=== PATIENT | male | born 1960 | race African-American/Black ===

== ENCOUNTER 2018-02-13 06:59 | Day surgery (SDC) | payer OTHER, MEDICAID ==
[2018-02-11 10:37] LABS: Urine Bacteria NONE SEEN /hpf (None Seen); Urine Blood Negative /uL (Negative); Urine Specific Gravity 1.014 (1.001-1.035); Urine WBC <1 /hpf (0 - 3)
[2018-02-11 11:04] LABS: Hematocrit 47.2 % (41.0-53.0); Hemoglobin 15.6 g/dL (13.5-17.5); Mean Corpuscular Hemoglobin 32.7 pg (28.0-32.0); Mean Corpuscular Hgb Conc. 33.1 g/dL (32.0-36.0); Mean Corpuscular Volume 98.8 fL (80.0-100.0); Platelet Count (auto) 216 10^3/uL (140-450); Red Blood Cells 4.78 10^6/uL (4.5-5.90); White Blood Cell 15.3 10^3/uL (4.4-10.8)
[2018-02-11 11:49] LABS: Calcium 9.1 mg/dL (8.5-10.1); Potassium 4.6 mmol/L (3.5-5.1)
[2018-02-11 11:55] LABS: Albumin 3.9 g/dL (3.4-5.0); BUN/Creatinine Ratio 20.2; Bilirubin, Total 0.7 mg/dL (0.2-1.0); Total Protein 6.9 g/dL (6.4-8.2)
[2018-02-11 12:19] LABS: Band Neutrophils % (manual) 0; Basophils % (manual) 0 (0.0-2.0); Blast Cells 0; Eosinophils % (manual) 0 (0-7); Metamyelocytes % 0; Myelocytes % 0; Promyelocytes % 0; Reactive Lymphocytes 0
[2018-02-11 12:35] LABS: INR 0.88 (0.9-1.15); Partial Thromboplastin Time 27.3 sec (23.78-33.04); Prothrombin Time 9.5 sec (9.27-12.13)
[2018-02-11 15:43] LABS: Lymphocytes % (manual) 78 (10.0-50.0); Monocytes % (manual) 2 (0-12)
[~2018-02-13] VITALS: Ht 170.2 cm; Wt 61.2 kg
[~2018-02-13 06:59] MED LIST: HYDR-4683 PO; METF-370 PO; ZOLP10TA PO
[2018-02-13] MEDS ORDERED: ceFAZolin 1GM/50ML 50 ML IV ONE (07:57)
[2018-02-13] MEDS ORDERED: BUPIVACAINE 0.75% INJ 10ML MPV SDV IJ ONE (08:24)
[2018-02-13] MEDS ORDERED: MIDAZOLAM HCL 1MG/1ML-2 ML VIAL ONE (08:33)
[2018-02-13] MEDS ORDERED: fentaNYL CITRATE 100 MCG/2 ML VL ONE (08:33)
[2018-02-13] MEDS ORDERED: PROPOFOL 10 MG/ML 20 ML IV ONE (08:34)
[2018-02-13] MEDS ORDERED: ePHEDrine SULFATE 50 MG/ML AMP IV PRN (09:00)
[2018-02-13] MEDS ORDERED: fentaNYL CITRATE 100 MCG/2 ML VL IV ONE (09:00)
[2018-02-13] MEDS ORDERED: ONDANSETRON HCL 4 MG/2 ML VIAL IV ONE (09:00)
[2018-02-13] MEDS ORDERED: hydrALAZINE HCL 20 MG/ML VL IV PRN (09:00)
[2018-02-20 07:30] VITALS: BP 119/86
== END 2018-02-13 09:35 | disposition home or self-care (01) ==
LOC: SUR 06:59
PROVIDERS: ATTEND Podiatrist Foot & Ankle Surgery
DX: D23.72 Other benign neoplasm of skin of left lower limb, including hip (principal); J44.9 Chronic obstructive pulmonary disease, unspecified; E11.9 Type 2 diabetes mellitus without complications; Z80.0 Family history of malignant neoplasm of digestive organs; Z79.1 Long term (current) use of non-steroidal anti-inflammatories (NSAID); Z79.84 Long term (current) use of oral hypoglycemic drugs; Z79.899 Other long term (current) drug therapy; Z88.6 Allergy status to analgesic agent; Z85.6 Personal history of leukemia; Z98.890 Other specified postprocedural states
CPT/HCPCS: 11423; 36415; 80053; 81001; 82962; 85007; 85027; 85610; 85730; 93005; J0690; J2250; J2704; J3010; J3490

== ENCOUNTER 2024-03-21 11:18 | Inpatient (IN) | payer OTHER, MEDICAID ==
[~2024-03-21] VITALS: Ht 170.2 cm; Wt 56.0 kg
[~2024-03-21 11:18] MED LIST changes: +ACET1CAP14 PO; +ALBUAER3 IN; +BECLPOW XX; +ERGO1CAP23 PO; +FLUT0.05 NAS; -HYDR-4683 PO; +HYDR-4833 PO; +IPRIH IN; +SIMV20TA20 PO; +TIZA4TAB9 PO; -ZOLP10TA PO
[2024-03-21] MEDS: methylPREDNISolone SOD SUCC 125 MG/2 ML VL IV ONE (11:39)
[2024-03-21] MEDS: methylPREDNISolone SOD SUCC 125 MG/2 ML VL ONE (11:39)
[2024-03-21] MEDS: ALBUTEROL SULF 2.5 MG/0.5ML(0.5%) NEB SOLN NEB ONE (11:40)
[2024-03-21] MEDS: IPRATROPIUM BROM 0.5 MG/2.5ML INH SOL NEB ONE (11:40)
--- NOTE | 2024-03-21 12:23 | DVH ---
CHEST RADIOGRAPH Indication: sob Technique: Single frontal view of the chest was obtained COMPARISON: None FINDINGS: Lines and Tubes: None Lungs: Diffuse increased interstitial prominence. Pleura: No effusion. No pneumothorax. Cardiomediastinal contours: Unremarkable Bones: Unremarkable IMPRESSION: Pulmonary vascular congestion or viral pneumonitis.
[2024-03-21 12:34] LABS: Basophils # (auto) 0 10 ^3/uL (0-0.2); Basophils % (auto) 0.2 % (0.0-2.0); Eosinophils # (auto) 0 10 ^3/uL (0-0.8); Eosinophils % (auto) 0.2 % (0.0-7.0); Hematocrit 37.8 % (41.0-53.0); Hemoglobin 12.3 g/dL (13.5-17.5); Lymphocytes # (auto) 1.8 10 ^3/uL (0.4-5.4); Lymphocytes % (auto) 14.9 % (10.0-50.0); Mean Corpuscular Hemoglobin 29.7 pg (28.0-32.0); Mean Corpuscular Hgb Conc. 32.5 g/dL (32.0-36.0); Mean Corpuscular Volume 91.2 fL (80.0-100.0); Monocytes % (auto) 8.7 % (0.0-12.0); Neutrophils # (auto) 9.1 10 ^3/uL (1.6-8.6); Nucleated Red Blood Cells % 0.1 %; Platelet Count (auto) 430 10^3/uL (140-450); Red Blood Cells 4.14 10^6/uL (4.5-5.90); Red Cell Distribution Width 13.9 % (11.8-14.3)
[2024-03-21 12:47] LABS: Anion Gap 3 (5-15); Potassium 4.8 mmol/L (3.5-5.1)
[2024-03-21 12:48] LABS: Calcium 9.7 mg/dL (8.7-10.4); Carbon Dioxide 34 mmol/L (20-31); Chloride 93 mmol/L (98-107); Sodium 130 mmol/L (136-145)
[2024-03-21 12:52] LABS: BUN/Creatinine Ratio 11.1 (10.0-20.0); Blood Urea Nitrogen 10 mg/dL (9-23)
[2024-03-21 12:54] LABS: Glucose 115 mg/dL (74-106)
--- NOTE | 2024-03-21 13:25 | ED.PDOC ---
SOB-HPI HPI Comments 63y F who presents to the ED via EMS for chief complaint of shortness of breath. EMS states pt has been having shortness of breath for the past few days getting progressively worse. EMS states upon arrival, pt has 02 sat of 45% o room air and pt was placed on CPAP and 02 sat charli to 96% with associted breathing treatment. Pt mason noted recent diagnoses of pneumonia 3 weeks prior and COVID 1 weeks. prior. Pt otherwise denies any other symptoms at this time. Pt in the ED, with temp of 98.4 and is on 15L via non-rebreather and 02 sat of 100%. Chief Complaint: Shortness of Breath Time Seen by MD: 13:26 Primary Care Provider: ELI Paz notes: Measurement Psychologist Notes Information Source: Emergency Med Personnel Mode of Arrival: EMS Past Medical History PAST MEDICAL HISTORY: Cancer, High Lipids, HTN Surgical History: Denies all surgeries Family History Family History: No family hx of DM Social History Smoker: Cigarettes, Greater Than 1 Pack/Day Alcohol: Heavy Drugs: Marijuana Lives In: Home Constitutional: denies: chills, diaphoresis, fatigue, fever, malaise, sweats, weakness, others EENTM: denies: blurred vision, double vision, ear bleeding, ear discharge, ear drainage, ear pain, ear ringing, eye pain, eye redness, hearing loss, mouth pain, mouth swelling, nasal discharge, nose bleeding, nose congestion, nose pain, photophobia, tearing, throat pain, throat swelling, voice changes, others Respiratory: reports: SOB at rest, shortness of breath, SOB with excertion; denies: cough, hemoptysis, orthopnea, stridor, wheezing, others Cardiovascular: denies: chest pain, dizzy spells, diaphoresis, Dyspnea on exertion, edema, irregular heart beat, left arm pain, lightheadedness, palpitations, PND, syncope, others Gastrointestinal: denies: abdomen distended, abdominal pain, blood streaked bowels, constipated, diarrhea, dysphagia, difficulty swallowing, hematemesis, melena, nausea, poor appetite, poor fluid intake, rectal bleeding, rectal pain, vomiting, others Genitourinary: denies: burning, dysuria, flank pain, frequency, hematuria, incontinence, penile discharge, penile sore, pain, testicle pain, testicle swelling, urgency, others Neurological: denies: dizziness, fainting, headache, left sided numbness, left sided weakness, numbness, paresthesia, pre-existing deficit, right sided numbness, right sided weakness, seizure, speech problems, tingling, tremors, weakness, others Musculoskeletal: denies: back pain, gout, joint pain, joint swelling, muscle pain, muscle stiffness, neck pain, others Integumetry: denies: bruises, change in color, change in hair/nails, dryness, laceration, lesions, lumps, rash, wounds, others Allergic/Immunocompromised: denies: Difficulty Healing, Frequent Infections, Hives, Itching, others Hematologic/Lymphatic: denies: anemia, blood clots, easy bleeding, easy bruising, swollen glands, others Endocrine: denies: excessive hunger, excessive sweating, excessive thirst, excessive urination, flushing, intolerance to cold, intolerance to heat, unexplained weight gain, unexplained weight loss, others Psychiatric: denies: anxiety, bipolar disorder, depression, hopeless, panic disorder, schizophrenia, sleepless, suicidal, others All Other Systems: Reviewed and Negative Physical Exam General Appearance: No Apparent Distress, Normal HEENT: Normal ENT Inspection, Pharynx Normal, TMs Normal Neck: Full Range of Motion, Non-Tender, Normal, Normal Inspection Respiratory: Other (no pedal edema, distant breath sounds, able to speak in full sentences) Cardiovascular: No Edema, No JVD, No Murmur, No Gallop, Normal Peripheral Pulses, Regular Rate/Rhythm Breast Exam: Deferred Gastrointestinal: No Organomegaly, Non Tender, No Pulsatile Mass, Normal Bowel Sounds, Soft Genitalia: Deferred Pelvic: Deferred Rectal: Deferred Extremities: No calf tenderness, Normal capillary refill, Normal inspection, Normal range of motion, Non-tender, No pedal edema Musculoskeletal : Apperance: Normal Neurologic: Alert, pattern drum maker II-XII nml as Tested, No Motor Deficits, Normal Affect, Normal Mood, No Sensory Deficits Cerebellar Function: Normal Reflexes: Normal Skin: Dry, Normal Color, Warm Lymphatic: No Adenopathy Was a procedure done? Was a procedure done?: No Differential Dx Differential Diagnosis: Anxiety, Asthma, Bronchitis, CHF, COPD, Hyperventilation, Hyponatremia, Myocardial infarction, Panic Attack, Pneumonia, Pneumothorax, Pulmonary Embolism, Respiratory Distress, URI X-Ray, Labs, Meds, VS Vital Signs Date Time Temp Pulse Resp B/P (MAP) Pulse Ox O2 Delivery O2 Flow Rate FiO2 03/21/24 14:00 94 25 95/54 (68) 94 03/21/24 13:00 107 30 112/62 (79) 94 03/21/24 12:00 104 29 117/76 (90) 97 03/21/24 11:40 25 100 Non-Rebreather 15 N/A 03/21/24 11:35 20 96 Non-Rebreather 15 N/A 03/21/24 11:33 98.4 96 25 104/76 (85) 100 98.4 03/21/24 11:27 98.4 103 20 124/78 (93) 96 Lab Test 03/21/24 12:52 03/21/24 12:08 Range/Units Troponin I High Sensitivity 14 15 </=54 ng/L White Blood Count 12.0 H 4.4-10.8 10^3/uL Red Blood Count 4.14 L 4.5-5.90 10^6/uL Hemoglobin 12.3 L 13.5-17.5 g/dL Hematocrit 37.8 L 41.0-53.0 % Mean Corpuscular Volume 91.2 80.0-100.0 fL Mean Corpuscular Hemoglobin 29.7 28.0-32.0 pg Mean Corpuscular Hemoglobin Concent 32.5 32.0-36.0 g/dL Red Cell Distribution Width 13.9 11.8-14.3 % Platelet Count 430 140-450 10^3/uL Mean Platelet Volume 6.9 6.9-10.8 fL Neutrophils (%) (Auto) 76.0 37.0-80.0 % Lymphocytes (%) (Auto) 14.9 10.0-50.0 % Monocytes (%) (Auto) 8.7 0.0-12.0 % Eosinophils (%) (Auto) 0.2 0.0-7.0 % Basophils (%) (Auto) 0.2 0.0-2.0 % Neutrophils # (Auto) 9.1 H 1.6-8.6 10 ^3/uL Lymphocytes # (Auto) 1.8 0.4-5.4 10 ^3/uL Monocytes # (Auto) 1.0 0-1.3 10 ^3/uL Eosinophils # (Auto) 0 0-0.8 10 ^3/uL Basophils # (Auto) 0 0-0.2 10 ^3/uL Nucleated Red Blood Cells 0.1 % Sodium Level 130 L 136-145 mmol/L Potassium Level 4.8 3.5-5.1 mmol/L Chloride Level 93 L 98-107 mmol/L Carbon Dioxide Level 34 H 20-31 mmol/L Anion Gap 3 L 5-15 Blood Urea Nitrogen 10 9-23 mg/dL Creatinine 0.90 0.700-1.30 mg/dL Glomerular Filtration Rate Calc 96 >90 mL/min BUN/Creatinine Ratio 11.1 10.0-20.0 Serum Glucose 115 H 74-106 mg/dL Calcium Level 9.7 8.7-10.4 mg/dL B-Type Natriuretic Peptide 60.03 0-100 pg/mL Current Medications Medications (Trade) Dose Ordered Sig/Julieth Route Start Time Stop Time Status Last Admin Ipratropium Cucumber (Atrovent Medneb) 0.5 mg ONCE ONCE NEB 03/21/24 11:30 03/21/24 11:31 DC 03/21/24 11:40 Methylprednisolone Sodium Succinate (Solu Medrol) 125 mg ONCE ONCE IV 03/21/24 11:30 03/21/24 11:31 DC 03/21/24 11:39 Albuterol (Ventolin Medneb) 15 mg ONCE ONCE NEB 03/21/24 11:30 03/21/24 11:31 DC 03/21/24 11:40 [place] [id number] Ph: [phone] DIAGNOSTIC IMAGING Diagnostic Imaging Report : [id number] Signed PATIENT: INO ELIAS ACCT: [id number] UNIT: [id number] : 1960 LOC: ER ROOM / BED: / AGE / SEX: 63 / M ADM STATUS: REG ER SERVICE ORDERING PHYSICIAN: BERNARD SILVERMAN MD PROCEDURE(s): CXRP - CHEST PORTABLE REASON: sob ORDER NUMBER(s): [id number], ACCESSION NUMBER(s): [id number] CHEST RADIOGRAPH Indication: sob Technique: Single frontal view of the chest was obtained COMPARISON: None FINDINGS: Lines and Tubes: None Lungs: Diffuse increased interstitial prominence. Pleura: No effusion. No pneumothorax. Cardiomediastinal contours: Unremarkable Bones: Unremarkable IMPRESSION: Pulmonary vascular congestion or viral pneumonitis. ATED BY: HANSEL QUIROZ MD DICTATED DATE/TIME: 03/21/24 1221 SIGNED BY: HANSEL QUIROZ MD SIGNED DATE/TIME: 03/21/24 1221 CC: Time of 1ST Reevaluation: 14:00 Reevaluation 1ST: Unchanged Time of 2ND Reevaluation: 14:39 Reevaluation 2ND: Improved Patient Education/Counseling: Diagnosis, Treatment, Prognosis, Need For Follow Up Family Education/Counseling: No Family Present Additional Information pt has evidence of pneumonitis. however, chf cannot be ruled out. he will be admitted on antibiotic. he may need to have an ECHO Departure 1 Departure Time of Disposition: 14:39 Impression: Primary Impression: Respiratory distress Additional Impression: Pneumonitis Disposition: ADMITTED INPATIENT Admit to: Tele Condition: Stable Critical Care Note Critical Care Time?: No Critical care comment: due to concerns for patient's condition deterioration, the care required my highest attention and readiness to intervene. i spoke to the family, patient, reviewed any records, ordered the appropriate tests and treatments, reviewed the results, response and communicated with medical personnel, formulated a plan of care. critical care time does not include any procedures Stability Stability form required: No Heart Score Heart Score: Heart Score Response (Comments) Value History Slightly Suspicious 0 EKG Normal 0 Age 45-64 1 Risk Factors 1 or 2 risk factors 1 Troponin Normal limit 0 Total 2 I personally scribed for BERNARD SILVERMAN MD ([email or web address]) on 03/21/24 at 13:25. Electronically submitted by Nina Gee ([email or web address]). I personally scribed for BERNARD SILVERMAN MD (DVCost Effective Data) on 03/21/24 at 13:29. El ectronically submitted by Nina Gee (PADMINI). BERNARD SILVERMAN MD Mar 21, 2024 13:25
[2024-03-21 14:36] VITALS: PULSE 98; RESP 25; O2SAT 95
[2024-03-21] MEDS: FUROSEMIDE 40 MG/4 ML VIAL IV ONE (16:02)
[2024-03-21 18:08] LABS: Rapid Influenza A Negative (Negative); Rapid Influenza B Negative (Negative)
[2024-03-21 18:18] LABS: COVID19 ANTIGEN SOFIA FIA POSITIVE (NEGATIVE)
[2024-03-21 19:45] VITALS: PULSE 94; RESP 24; O2SAT 94
[2024-03-21 20:46] LABS: Urine Bacteria None Seen /hpf (None Seen)
[2024-03-21 21:18] LABS: Urine Blood Negative /uL (Negative); Urine Clarity Clear (Clear); Urine Color Light-Yellow (Yellow); Urine Mucus FEW (None Seen); Urine Protein, UAD Negative (Negative); Urine Specific Gravity 1.007 (1.001-1.035); Urine Squamous Epithelial Cell FEW /hpf (<5); Urine Urobilinogen Normal (Negative); Urine WBC <1 /hpf (0 - 3); Urine pH 5.5 (5.0-9.0)
--- NOTE | 2024-03-21 21:31 | DVHHPRES ---
History of Present Illness Resident Creating Document: SCAR VILLAGOMEZ RESIDENT History of Present Illness This is a 63 years old male with past medical history of hypertension, leukemia, COPD with home oxygen, presented to the ED with a chief complaint of shortness of breath and productive cough for 3 days prior to this admission. The patient states that he was diagnosed with pneumonia 3 weeks ago and on oral antibiotics for 10 days and 1 week ago he was diagnosed with COVID. He mentioned that for last 3 days he has cough with yellowish sputum and shortness of breath getting worse that prompted this visit. He denies chest pain, dizziness, diaphoresis, abdomen pain, nausea, vomiting, dysuria, hematuria, fever, malaise, weakness, sick contact or any change in bowel movement. Past Medical History Hypertension, leukemia, COPD Past Surgical History None Family History None Past Social History Lives with brother Smokes 4-5 cigarettes per day, drinks 3-4 beer every day for last 10 years and never tried any drugs. Review of Systems Constitutional: Yes: Malaise; No: Fever, Chills, Sweats, Weakness, Other Eyes: No: Pain, Vision change, Conjunctivae inflammation, Eyelid inflammation, Other, Redness ENT: No: Ear pain, Ear discharge, Nose pain, Nose discharge, Nose congestion, Mouth pain, Mouth swelling, Throat pain, Throat swelling, Other Respiratory: Cough, Shortness of breath, Wheezing, Sputum; No: Dry, SOB with excertion, Hemoptysis, Pleuritic Pain, Wheezing, Other Cardiovascular: No: Chest Pain, Palpitations, Orthopnea, Paroxysmal Noc. Dyspnea, Edema, Lt Headedness, Other Gastrointestinal: No: Nausea, Vomiting, Abdominal Pain, Diarrhea, Constipation, Melena, Hematochezia, Other Genitourinary: No Dysuria, No Frequency, No Incontinence, No Hematuria, No Retention, No Other Musculoskeletal: No: other, neck pain, shoulder pain, arm pain, back pain, hand pain, leg pain, foot pain Skin: No: Rash, Lesions, Jaundice, Bruising, Other Neurological: No: Weakness, Numbness, Incoordination, Change in speech, Confusion, Seizures, Other Allergies: Coded Allergies: Aspirin (Unverified Allergy, Mild, HIVES, 02/11/18) Medications Current Medications Medications Dose Ordered Sig/Julieth Route Start Time Stop Time Status Last Admin Dose Admin Albuterol 2.5 mg Q4HR NEB 03/21/24 22:00 UNV Ipratropium [place] 0.5 mg Q4HR NEB 03/21/24 22:00 UNV Methylprednisolone Sodium Succinate 40 mg BID IV 03/21/24 22:00 UNV Ceftriaxone Sodium 50 ml @ 100 mls/hr DAILY IV 03/22/24 10:00 UNV Azithromycin 250 ml @ 125 mls/hr DAILY IV 03/22/24 10:00 UNV Furosemide 20 mg DAILY IV 03/22/24 10:00 UNV Exam Vital Signs Vital Signs Date Time Temp Pulse Resp B/P (MAP) Pulse Ox O2 Delivery O2 Flow Rate FiO2 03/21/24 19:45 98.2 92 24 98/64 (75) 94 98.2 03/21/24 19:45 Nasal Cannula* 4 36 Exam Physical examination: General Appearance: Alert, Oriented X3, Cooperative, No acute distress HEENT: Atraumatic, PERRLA, EOMI, Mucous membrane moist/pink Respiratory: Left-sided decreased breath sounds, right-sided wheezing and crackles. Cardiovascular: Regular rate, Normal S1, Normal S2, No murmurs, no chest wall tenderness Abdominal: Normal bowel sounds, Soft, No tenderness, No hepatospenomegaly, No masses Extremities: No clubbing, No cyanosis, No edema, Normal pulses, No tenderness/swelling Skin: No rashes, No breakdown, No significant lesion Neuro: Normal gait, Normal speech, Strength at 5/5 X4 ext, Normal tone, Sensation intact, grossly intact cranial nerves. Psych/Mental Status: Mental status NL, Mood NL Labs/Xrays Labs Test 03/21/24 20:00 03/21/24 16:05 03/21/24 15:22 03/21/24 12:08 Range/Units Urine Color Light-yellow Yellow Urine Clarity Clear Clear Urine pH 5.5 5.0-9.0 Urine Specific [place] 1.007 1.001-1.035 Urine Protein Negative Negative Urine Ketones Negative Negative Urine Blood Negative Negative /uL Urine Nitrite Negative Negative Urine Bilirubin Negative Negative Urine Urobilinogen Normal Negative mg/dL Urine Leukocyte Esterase Negative Negative /uL Urine RBC <1 0 - 3 /hpf Urine WBC <1 0 - 3 /hpf Urine Squamous Epithelial Cells Few <5 /hpf Urine Bacteria None seen None Seen /hpf Urine Mucus Few None Seen Urine Glucose Normal Normal mg/dL Influenza Type A Antigen Negative Negative Influenza Type B Antigen Negative Negative SARS-CoV-2 Antigen (Rapid) Positive *A NEGATIVE Troponin I High Sensitivity 12 </=54 ng/L White Blood Count 12.0 H 4.4-10.8 10^3/uL Red Blood Count 4.14 L 4.5-5.90 10^6/uL Hemoglobin 12.3 L 13.5-17.5 g/dL Hematocrit 37.8 L 41.0-53.0 % Mean Corpuscular Volume 91.2 80.0-100.0 fL Mean Corpuscular Hemoglobin 29.7 28.0-32.0 pg Mean Corpuscular Hemoglobin Concent 32.5 32.0-36.0 g/dL Red Cell Distribution Width 13.9 11.8-14.3 % Platelet Count 430 140-450 10^3/uL Mean Platelet Volume 6.9 6.9-10.8 fL Neutrophils (%) (Auto) 76.0 37.0-80.0 % Lymphocytes (%) (Auto) 14.9 10.0-50.0 % Monocytes (%) (Auto) 8.7 0.0-12.0 % Eosinophils (%) (Auto) 0.2 0.0-7.0 % Basophils (%) (Auto) 0.2 0.0-2.0 % Neutrophils # (Auto) 9.1 H 1.6-8.6 10 ^3/uL Lymphocytes # (Auto) 1.8 0.4-5.4 10 ^3/uL Monocytes # (Auto) 1.0 0-1.3 10 ^3/uL Eosinophils # (Auto) 0 0-0.8 10 ^3/uL Basophils # (Auto) 0 0-0.2 10 ^3/uL Nucleated Red Blood Cells 0.1 % Sodium Level 130 L 136-145 mmol/L Potassium Level 4.8 3.5-5.1 mmol/L Chloride Level 93 L 98-107 mmol/L Carbon Dioxide Level 34 H 20-31 mmol/L Anion Gap 3 L 5-15 Blood Urea Nitrogen 10 9-23 mg/dL Creatinine 0.90 0.700-1.30 mg/dL Glomerular Filtration Rate Calc 96 >90 mL/min BUN/Creatinine Ratio 11.1 10.0-20.0 Serum Glucose 115 H 74-106 mg/dL Calcium Level 9.7 8.7-10.4 mg/dL B-Type Natriuretic Peptide 60.03 0-100 pg/mL Assessment/Plan Assessment/Plan Assessment and plan: # Acute on chronic respiratory failure due to Covid pneumonia - Patient is on 4 L oxygen with saturation 97% . - IV Decadron 6 mg daily - Remdesivir po per pharmacy - Vitamin C 500 mg and Zinc 20 mg p.o. daily # Possible secondary Gram-positive versus Gram-negative pneumonia - IV ceftriaxone 1 g daily and IV azithromycin 500 mg daily - Ordered sputum C/S # Acute exacerbation of chronic COPD - IV Decadron 6 mg daily - Duoneb with albuterol and ipratropium q.4 hours # Prediabetes, HbA1C 6.3 - Counseled patient regarding low carb diet, lifestyle modification and physical exercise # PUD prophylaxis - Pepcid 20 mg p.o. daily # DVT prophylaxis - Lovenox 40 mg sc daily Goal of care discussed with the patient for more than 17 minutes full code Plan discussed with Dr. Castillo Plan discussed with: Patient, Other My Orders Orders - SCAR VILLAGOMEZ RESIDENT Procedure Category Date Status Time Admit ADMIT 03/21/24 Transmitted 21:19 Albuterol Medneb PHA 03/21/24 Logged (Ventolin Medneb) 22:00 Ipratropium Medneb PHA 03/21/24 Logged (Atrovent Medneb) 22:00 Methylprednisolone PHA 03/21/24 Logged Sod Succ (Solu Medrol 22:00 Ceftriaxone 1gm/50ml PHA 03/22/24 Logged D5w (Rocephin) 10:00 Azithromycin 500mg/ PHA 03/22/24 Logged 250ml (Zithromax 50 10:00 Furosemide Injection PHA 03/22/24 Logged (Lasix Injection) 10:00 Blood Alcohol LAB 03/21/24 Logged 21:23 Drug Screen LAB 03/21/24 Logged 21:23 Hemoglobin A1c LAB 03/21/24 Logged 21:23 Thyroid Stimulating LAB 03/21/24 Logged Hormone 21:23 Date of Service: Mar 21, 2024 Billing Provider: JENNI CASTILLO MD Common Visit Codes: 99104-[id number] INP/OBS CARE (HIGH) SCAR VILLAGOMEZ RESIDENT Mar 21, 2024 21:31 JENNI CASTILLO MD Mar 22, 2024 10:47
[2024-03-21 21:40] VITALS: BP 98/64; PULSE 92; RESP 24; TEMP 98.2; O2SAT 94
[2024-03-21] MEDS ORDERED: methylPREDNISolone SOD SUCC 40 MG/ML VL IV SCH (22:00)
[2024-03-21 22:46] VITALS: PULSE 82; RESP 20; O2SAT 97
[2024-03-21] MEDS: ALBUTEROL SULF 2.5 MG/0.5ML(0.5%) NEB SOLN NEB SCH (22:46)
[2024-03-21] MEDS: IPRATROPIUM BROM 0.5 MG/2.5ML INH SOL NEB SCH (22:46)
[2024-03-21 22:52] VITALS: PULSE 85; RESP 18; O2SAT 98
[2024-03-21] MEDS ORDERED: REMDESIVIR PER PHARMACY 0 ML IV SCH (23:30)
[2024-03-22] VITALS (21 sets, daily range): BP systolic 102–105; BP diastolic 56–58; PULSE 56–106; RESP 1–27; TEMP 98.2–98.3; O2SAT 92–99
[2024-03-22 07:42] LABS: Potassium 4.6 mmol/L (3.5-5.1)
[2024-03-22 07:43] LABS: Anion Gap 4 (5-15); Calcium 9.3 mg/dL (8.7-10.4)
[2024-03-22 07:44] LABS: Basophils # (auto) 0 10 ^3/uL (0-0.2); Basophils % (auto) 0.2 % (0.0-2.0); Eosinophils # (auto) 0 10 ^3/uL (0-0.8); Eosinophils % (auto) 0.1 % (0.0-7.0); Hematocrit 35.3 % (41.0-53.0); Hemoglobin 11.8 g/dL (13.5-17.5); Lymphocytes # (auto) 0.9 10 ^3/uL (0.4-5.4); Lymphocytes % (auto) 11.5 % (10.0-50.0); Mean Corpuscular Hemoglobin 30.4 pg (28.0-32.0); Mean Corpuscular Hgb Conc. 33.5 g/dL (32.0-36.0); Mean Corpuscular Volume 90.7 fL (80.0-100.0); Monocytes # (auto) 1.1 10 ^3/uL (0-1.3); Monocytes % (auto) 14.2 % (0.0-12.0); Platelet Count (auto) 405 10^3/uL (140-450); Red Blood Cells 3.89 10^6/uL (4.5-5.90); Red Cell Distribution Width 14.2 % (11.8-14.3); White Blood Cell 8.1 10^3/uL (4.4-10.8)
[2024-03-22 07:48] LABS: Blood Urea Nitrogen 16 mg/dL (9-23)
[2024-03-22 08:38] LABS: Cannabinoid Screen, Urine Neg (NEGATIVE); Opiate Scree,Urine Neg (NEGATIVE)
[2024-03-22 09:13] LABS: Carbon Dioxide 35 mmol/L (20-31); Chloride 95 mmol/L (98-107); Sodium 134 mmol/L (136-145)
[2024-03-22 09:15] LABS: Glucose 119 mg/dL (74-106)
[2024-03-22 09:16] LABS: Amphetamine Screen, Urine Neg (NEGATIVE); Barbiturate Scree,Urine Neg (NEGATIVE); Benzodiazephine Screen, Urine Neg (NEGATIVE); Cocaine Screen, Urine Neg (NEGATIVE); Phencyclidine Screen, Urine Neg (NEGATIVE)
[2024-03-22] MEDS ORDERED: FUROSEMIDE 20 MG/2 ML VIAL IV SCH (10:00)
--- NOTE | 2024-03-22 10:12 | DVHPNRES ---
Progress Note Date Seen: Mar 22, 2024 Resident Creating Document: BILL DOBBS RESIDENT Has the PT tested + for MRSA If YES, has PT been informed?: No Medical Necessity Reason Pt with a Central, PICC or Fol: No Subjective Review of Systems Overnight hemodynamically stable, patient breathing in the room air, patient is ambulatory, no acute distress. Patient refuse scheduled albuterol. Remains on ceftriaxone, vancomycin, azithromycin. CBC is stable, CMP WNL blood cultures still showing positive cocci in clusters in 2 bottles repeat cultures pending Patient reports: No new complaints, Feels better Changes from previous H/P or p: No Changes Objective vital signs Vital Sign Date Time Temp Pulse Resp B/P (MAP) Pulse Ox O2 Delivery O2 Flow Rate FiO2 03/22/24 09:00 104 18 92/47 (62) 94 03/22/24 07:28 98.4 98.4 03/22/24 07:28 Nasal Cannula* 4 36 medications Current Medications Medications Dose Ordered Sig/Julieth Route Start Time Stop Time Status Last Admin Dose Admin Albuterol 2.5 mg Q4HR NEB 03/21/24 22:00 03/22/24 07:18 2.5 MG Ipratropium [place] 0.5 mg Q4HR NEB 03/21/24 22:00 03/22/24 07:18 0.5 MG Ceftriaxone Sodium 50 ml @ 100 mls/hr DAILY IV 03/22/24 10:00 Azithromycin 250 ml @ 125 mls/hr DAILY IV 03/22/24 10:00 Ascorbic Acid 500 mg DAILY PO 03/22/24 10:00 Zinc Sulfate 220 mg DAILY PO 03/22/24 10:00 Dexamethasone Sodium Phosphate 6 mg DAILY IV 03/22/24 10:00 Remdesivir 0 ml @ 0 mls/hr PER PHARMACY IV 03/21/24 23:30 03/23/24 23:31 Famotidine 20 mg DAILY PO 03/22/24 10:00 Enoxaparin Sodium 40 mg DAILY SC 03/22/24 10:00 Remdesivir 100 mg/ Sodium Chloride 250 ml @ 250 mls/hr DAILY@1500 IV 03/23/24 15:00 03/24/24 15:59 Examination General Appearance: Alert, Oriented X3, Cooperative, No acute distress HEENT: Atraumatic, PERRLA, EOMI, Mucous membrane moist/pink Respiratory: Left-sided decreased breath sounds, right-sided wheezing and crackles. Improved. Cardiovascular: Regular rate, Normal S1, Normal S2, No murmurs, no chest wall tenderness Abdominal: Normal bowel sounds, Soft, No tenderness, No hepatospenomegaly, No masses Extremities: No clubbing, No cyanosis, No edema, Normal pulses, No tenderness/swelling Skin: No rashes, No breakdown, No significant lesion Neuro: Normal gait, Normal speech, Strength at 5/5 X4 ext, Normal tone, Sensation intact, grossly intact cranial nerves. Psych/Mental Status: Mental status NL, Mood NL laboratory and microbiology Laboratory Tests 03/22/24 07:18 Test 03/22/24 07:18 Range/Units Serum Glucose Pending Labs and/or images reviewed: Labs reviewed by me, Image(s) reviewed by me Problem List/Assessment/Plan Problem List/Assessment/Plan Hospitalization summary/ Assesment: The patient is a 63-year-old male with a history of hypertension, leukemia, and COPD requiring home oxygen. He presented to the ED with shortness of breath and a productive cough for the past three days. He was diagnosed with pneumonia three weeks ago and completed a 10-day course of oral antibiotics. One week ago, he was diagnosed with COVID-19. Over the last three days, his cough has produced yellowish sputum, and his shortness of breath has worsened, prompting this visit. He denies chest pain, dizziness, diaphoresis, abdominal pain, nausea, vomiting, dysuria, hematuria, fever, malaise, weakness, sick contacts, or changes in bowel movements. He lives with his brother, smokes 4-5 cigarettes daily, and drinks 3-4 beers every day for the past 10 years. He has no surgical or family history and has never used drugs. Plan: # Patient with history of leukemia on ibrutinib 420 mg tablet daily. # COVID pneumonia, moderately severe, hypoxic symptomatic # Acute on chronic respiratory failure due to Covid pneumonia: Decadron, remdesivir, vitamin-C and zinc to follow: wean oxygen as tolerated target SpO2 88-92% # possible secondary Gram-positive versus Gram-negative pneumonia: IV ceftriaxone azithromycin to continue sputum culture sensitivity to follow # sepsis secondary due to community-acquired pneumonia/ COVID: Sepsis protocol continued. # Acute exacerbation of chronic COPD: At home takes albuterol, Spiriva, fluticasone,Duoneb with albuterol and ipratropium q.4 hours # Prediabetes, HbA1C 6.3 Counseled patient regarding low carb diet, lifestyle modification and physical exercise # essential hypertension amlodipine 5, lisinopril 40 mg daily # nicotine patch for nicotine withdrawal # vitamin-D deficiency # dyslipidemia on simvastatin 40 mg daily # Ruled out PE/DVT: D-dimer, Use DVT # osteoarthritis as needed acetaminophen diclofenac sodium gel locally, tizanidine 2 g tablet # cervical pain due to osteoarthritis [place] 10 t.i.d.. Diet: regular diet GI prophylaxis: protonix 40mg/Famotidine 20/not needed DVT prophylaxis: Levonox 40mg/SCD/brisk movement/ Bowel regimen: MiraLax as needed Barriers to discharge: Medical diagnosis and managment in progress. Patient lives with self / family. Independent/need supportive device/wheelchair/person support for ADL. PT and SW consult as needed. PCP: Mendel Cooper Specialist Relevent To Admission: none full code: discussion needed Total 37 minutes of detailed discussion Patient care and plan discussed with Dr. Resendez Disposition: Patient remains in ICU / BOB / MED-SURG / TELE Plan discussed with: Patient, Other (Primary team, RN) My Orders My Orders Orders - BILL DOBBS Procedure Category Date Status Time Comprehensive LAB 03/22/24 In Process Metabolic Panel 09:54 D-Dimer LAB 03/22/24 In Process 09:56 Bilat Lower Dvt US 03/22/24 Logged 09:56 BILL DOBBS Mar 22, 2024 10:12
[2024-03-22] MEDS: ENOXAPARIN SOD 40 MG/0.4 ML SYRINGE SC SCH (10:35)
[2024-03-22] MEDS: FAMOTIDINE 20 MG TAB PO SCH (10:35)
[2024-03-22] MEDS: ASCORBIC ACID 500 MG TAB PO SCH (10:36)
[2024-03-22] MEDS: AZITHROMYCIN 500MG/ 250ML 250 ML IV SCH (10:36)
[2024-03-22] MEDS: DexAMETHasone SOD PHOS 10MG/1ML VIAL INJ IV SCH (10:36)
[2024-03-22] MEDS: ZINC SULFATE 220mg CAP or TAB PO SCH (10:40)
[2024-03-22] MEDS: cefTRIAXone 1GM/50ML D5W 50 ML IV SCH (10:41)
[2024-03-22 10:54] LABS: Albumin 3.7 g/dL (3.2-4.8); Alkaline Phosphatase 98 U/L (46-116); Anion Gap 5 (5-15); BUN/Creatinine Ratio 17.6 (10.0-20.0); Blood Urea Nitrogen 15 mg/dL (9-23); Calcium 9.5 mg/dL (8.7-10.4); Chloride 95 mmol/L (98-107); Potassium 4.6 mmol/L (3.5-5.1); Sodium 133 mmol/L (136-145)
[2024-03-22 10:55] LABS: Alanine Aminotransferase < 9 U/L (7-40); Aspartate Aminotransferase 11 U/L (13-40); Carbon Dioxide 33 mmol/L (20-31); Glucose 116 mg/dL (74-106); Total Protein 5.8 g/dL (5.7-8.2)
[2024-03-22 10:56] LABS: Bilirubin, Total 0.3 mg/dL (0.2-1.0)
[2024-03-22 11:14] LABS: Albumin 3.7 g/dL (3.2-4.8); Alkaline Phosphatase 98 U/L (46-116)
[2024-03-22 11:15] LABS: Bilirubin, Direct 0.1 mg/dL (<0.3); Total Protein 5.8 g/dL (5.7-8.2)
[2024-03-22 11:19] LABS: Alanine Aminotransferase < 9 U/L (7-40); Aspartate Aminotransferase 11 U/L (13-40); Bilirubin, Total 0.3 mg/dL (0.2-1.0)
--- NOTE | 2024-03-22 11:19 | DVH ---
Bilateral lower extremity venous duplex Clinical History: High risk of DVT / PE Comparison: None Technique: Duplex doppler evaluation of the deep venous systems of both lower extremities from the common femora l veins to the popliteal veins including color doppler and spectral/pulsed waveform analysis was perf ormed. Findings: RIGHT SIDE: The common femoral vein demonstrates appropriate compressibility and waveform variability. There is compressibility/patency of the great saphenous vein at the proximal thigh. The femoral vein demonstrates appropriate compressibility and waveform variability. The deep femoral vein demonstrates appropriate compressibility and waveform variability. The popliteal vein demonstrates appropriate compressibility and waveform variability. There is normal compressibility at the tibioperoneal trunk. LEFT SIDE: The common femoral vein demonstrates appropriate compressibility and waveform variability. There is compressibility/patency of the great saphenous vein at the proximal thigh. The femoral vein demonstrates appropriate compressibility and waveform variability. The deep femoral vein demonstrates appropriate compressibility and waveform variability. The popliteal vein demonstrates appropriate compressibility and waveform variability. There is normal compressibility at the tibioperoneal trunk. Impression: 1. No right or left femoropopliteal venous thrombosis.
[2024-03-22] MEDS: REMDESIVIR 200mg in NS 210mL LOADING DOSE ADULT IV ONE (12:34)
[2024-03-22] MEDS ORDERED: POLYETHYLENE GLYCOL 17 GM PWDR PO PRN (23:30)
[2024-03-23] VITALS (10 sets, daily range): BP systolic 93–122; BP diastolic 58–73; PULSE 75–106; RESP 14–21; TEMP 97.4–98.3; O2SAT 92–99
[2024-03-23] MEDS: guaiFENesin 200 MG/10 ML UD PO PRN (00:09)
[2024-03-23] MEDS: MORPHINE SULFATE INJ 2 MG/ml SYRG IV PRN (00:09)
[2024-03-23] MEDS: ZOLPIDEM TARTRATE 5 MG TAB PO PRN (00:14)
[2024-03-23] MEDS ORDERED: ALBUTEROL SULF HFA 90MCG INH 200DOSE IN PRN (01:00)
[2024-03-23] MEDS: ALBUTEROL SULF HFA 90MCG INH 200DOSE IN SCH (06:35)
[2024-03-23] MEDS: FUROSEMIDE 20 MG/2 ML VIAL IV ONE (13:38)
[2024-03-23] MEDS: REMDESIVIR 100mg in NS 230mL (3 DAY REGIMEN) IV SCH (14:23)
--- NOTE | 2024-03-23 16:29 | DVHPNRES ---
Progress Note Date Seen: Mar 23, 2024 Resident Creating Document: NOE PEREZ SHARAD Has the PT tested + for MRSA If YES, has PT been informed?: No Medical Necessity Reason Pt with a Central, PICC or Fol: No Subjective Review of Systems This is a 63-year-old male with a past medical history of [specific conditions], who presented to the ED with a chief complaint of shortness of breath and productive cough for 3 days prior to this admission. The patient states that he was diagnosed with pneumonia 3 weeks ago and was on oral antibiotics for 10 days. One week ago, he was diagnosed with COVID. He mentioned that for the last 3 days, he has had a cough with yellowish sputum and worsening shortness of breath, which prompted this visit. He denies chest pain, dizziness, diaphoresis, abdominal pain, nausea, vomiting, dysuria, hematuria, fever, malaise, weakness, sick contacts, or any change in bowel movements. PMHx: Hypertension, COPD on home oxygen, leukemia on ibrutinib PSHx: Noncontributory Family history: Noncontributing Social history: Patient lives with the brother has home, smokes 4-6 cigarettes daily, drinks 3-4 be seen, denies any other drug use Home medication: Ibrutinib, and headache, Allergic history: Aspirin Today, patient seen and examined at the bedside. Patient is still complaining of shortness of breaths and cough. Patient can maintain saturation at 93% with 3 L of oxygen through nasal cannula. Patient reports: No new complaints Objective vital signs Vital Sign Date Time Temp Pulse Resp B/P (MAP) Pulse Ox O2 Delivery O2 Flow Rate FiO2 03/23/24 13:38 122/73 03/23/24 12:34 98.3 94 20 99 98.3 03/23/24 10:10 Nasal Cannula 3.0 03/23/24 10:10 32 Total Intake and Output 03/22/24 03/22/24 03/23/24 15:00 23:00 07:00 Intake Total 300 ml 0 ml 750 ml Balance 300 ml 0 ml 750 ml medications Current Medications Medications Dose Ordered Sig/Julieth Route Start Time Stop Time Status Last Admin Dose Admin Ceftriaxone Sodium 50 ml @ 100 mls/hr DAILY IV 03/22/24 10:00 03/23/24 10:14 100 MLS/HR Azithromycin 250 ml @ 125 mls/hr DAILY IV 03/22/24 10:00 03/23/24 10:00 125 MLS/HR Ascorbic Acid 500 mg DAILY PO 03/22/24 10:00 03/23/24 10:14 500 MG Zinc Sulfate 220 mg DAILY PO 03/22/24 10:00 03/23/24 10:15 220 MG Dexamethasone Sodium Phosphate 6 mg DAILY IV 03/22/24 10:00 03/23/24 10:16 6 MG Remdesivir 0 ml @ 0 mls/hr PER PHARMACY IV 03/21/24 23:30 03/23/24 23:31 Famotidine 20 mg DAILY PO 03/22/24 10:00 03/23/24 10:15 20 MG Enoxaparin Sodium 40 mg DAILY SC 03/22/24 10:00 03/23/24 10:16 40 MG Remdesivir 100 mg/ Sodium Chloride 250 ml @ 250 mls/hr DAILY@1500 IV 03/23/24 15:00 03/24/24 15:59 03/23/24 14:23 250 MLS/HR Polyethylene Glycol 17 gm DAILYPRN PRN PO 03/22/24 23:30 Guaifenesin 200 mg Q6HP PRN PO 03/22/24 23:30 03/23/24 00:09 200 MG Zolpidem Tartrate 5 mg HSPRN PRN PO 03/22/24 23:30 03/23/24 00:14 5 MG Morphine Sulfate 2 mg Q2HPRN PRN IV 03/22/24 23:30 03/23/24 05:44 2 MG Patient Own Medication 1 DAILY PO 03/24/24 12:00 Albuterol 180 mcg QID IN 03/23/24 12:30 Examination General Appearance: Alert, Oriented X3, Cooperative, No acute distress HEENT: Atraumatic, PERRLA, EOMI, Mucous membrane moist/pink Respiratory: Decreased breath sound, with bilateral lower zone crackles Cardiovascular: Regular rate, Normal S1, Normal S2, No murmurs, no chest wall tenderness Abdominal: Normal bowel sounds, Soft, No tenderness, No hepatospenomegaly, No masses Extremities: No clubbing, No cyanosis, No edema, Normal pulses, No tenderness/swelling Skin: No rashes, No breakdown, No significant lesion Neuro: Normal gait, Normal speech, Strength at 5/5 X4 ext, Normal tone, Sensation intact, Cranial nerves 3-12 NL, Reflexes 2+ Psych/Mental Status: Mental status NL, Mood NL laboratory and microbiology Laboratory Tests 03/22/24 07:18 Test 03/22/24 07:18 Range/Units Serum Glucose 116 H 74-106 mg/dL Labs and/or images reviewed: Labs reviewed by me, Image(s) reviewed by me Problem List/Assessment/Plan Problem List/Assessment/Plan Acute on chronic hypoxic/hypercarbic respiratory failure, likely due to pneumonia/COVID-19/COPD exacerbation Sepsis, likely due to COVID-19/pneumonia Pneumonia, likely due to Gram-positive Gram-negative/COVID-19 COVID-19 Acute exacerbation of COPD Cough, likely due to COVID-19/COPD exacerbation Chest x-ray shows hyperinflated lung, with prominent bronchovascular marking Influenza type a and B are negative Empiric antibiotic, ceftriaxone and azithromycin Remdesivir 100 mg IV daily and Decadron 6 mg daily Albuterol inhaler q.i.d. Tablet ascorbic acid 500 mg daily, tablet zinc 220 mg p.o. daily Guaifenesin 200 mg p.o. q.6 hours p.r.n. Oxygen through nasal cannula Check MRSA nares Prediabetes, Hb A1c is 6.3 Vitamin-D deficiency, repleted Mild hyponatremia, monitoring Hypertension Continue lisinopril and amlodipine Current smoker Patient is consulted for more than 20 minutes for smoking risk and smoking cessation nicotine patch Dyslipidemia Continue simvastatin 40 mg daily Osteoarthritis Cervical with the pain, likely due to osteoarthritis [place] 10 mg t.i.d. p.r.n. Ruled out DVT D-dimer is raised, likely due to COVID-19 Doppler ultrasound of bilateral lower limb is negative DIET: Regular DVT PROPHYLAXIS: Lovenox 40 mg GI PROPHYLAXIS:: Famotidine 20 mg daily BOWEL REGIMEN: Colace 100 mg daily as needed CODE STATUS: Goal of care discussed for more than 278, full code [facility] Patient's status discussed with the patient. Case discussed with Dr. Resendez Plan discussed with: Patient, Other (RN) My Orders My Orders Orders - NOE PEREZ RESDICASSIDY Procedure Category Date Status Time Blood Culture CHRISTIAN 03/23/24 In Process 08:46 Mrsa Screen CHRISTIAN 03/23/24 Logged 08:46 Respiratory Syncytial LAB 03/23/24 Logged Virus Ag 08:46 Patients Own PHA 03/24/24 In Process Medication 12:00 Albuterol Inhaler PHA 03/23/24 In Process (Ventolin Hfa) 12:30 NOE PEREZ Mar 23, 2024 16:29
[2024-03-23] MEDS ORDERED: DOCUSATE SOD 100 MG CAP PO PRN (16:30)
[2024-03-24] VITALS (12 sets, daily range): BP systolic 105–138; BP diastolic 63–75; PULSE 78–94; RESP 16–20; TEMP 97.8–98.4; O2SAT 94–100
[2024-03-24 08:36] LABS: Basophils # (auto) 0 10 ^3/uL (0-0.2); Basophils % (auto) 0.1 % (0.0-2.0); Eosinophils # (auto) 0 10 ^3/uL (0-0.8); Eosinophils % (auto) 0.3 % (0.0-7.0); Hematocrit 34.6 % (41.0-53.0); Hemoglobin 11.6 g/dL (13.5-17.5); Lymphocytes # (auto) 1.3 10 ^3/uL (0.4-5.4); Lymphocytes % (auto) 21.7 % (10.0-50.0); Mean Corpuscular Hemoglobin 30.5 pg (28.0-32.0); Mean Corpuscular Hgb Conc. 33.5 g/dL (32.0-36.0); Monocytes # (auto) 0.8 10 ^3/uL (0-1.3); Monocytes % (auto) 12.5 % (0.0-12.0); Neutrophils % (auto) 65.4 % (37.0-80.0); Platelet Count (auto) 416 10^3/uL (140-450); Red Cell Distribution Width 13.9 % (11.8-14.3); White Blood Cell 6.1 10^3/uL (4.4-10.8)
[2024-03-24 09:09] LABS: Alanine Aminotransferase 11 U/L (7-40); Albumin 3.7 g/dL (3.2-4.8); Alkaline Phosphatase 83 U/L (46-116); Anion Gap 2 (5-15); BUN/Creatinine Ratio 24.7 (10.0-20.0); Blood Urea Nitrogen 20 mg/dL (9-23); Calcium 9.5 mg/dL (8.7-10.4); Glucose 96 mg/dL (74-106); Potassium 4.5 mmol/L (3.5-5.1)
[2024-03-24 09:12] LABS: Aspartate Aminotransferase 10 U/L (13-40); Bilirubin, Total 0.2 mg/dL (0.2-1.0); Carbon Dioxide 38 mmol/L (20-31); Chloride 95 mmol/L (98-107); Sodium 135 mmol/L (136-145); Total Protein 5.5 g/dL (5.7-8.2)
[2024-03-24] MEDS ORDERED: PATIENTS OWN MEDICATION PO SCH (10:00)
[2024-03-24] MEDS: IMBRUVICA 420 MG PO SCH (11:36)
--- NOTE | 2024-03-24 17:02 | DVHPNRES ---
Progress Note Date Seen: Mar 24, 2024 Resident Creating Document: NOE PEREZ SHARAD Has the PT tested + for MRSA If YES, has PT been informed?: No Medical Necessity Reason Pt with a Central, PICC or Fol: No Subjective Review of Systems This is a 63-year-old male with a past medical history of [specific conditions], who presented to the ED with a chief complaint of shortness of breath and productive cough for 3 days prior to this admission. The patient states that he was diagnosed with pneumonia 3 weeks ago and was on oral antibiotics for 10 days. One week ago, he was diagnosed with COVID. He mentioned that for the last 3 days, he has had a cough with yellowish sputum and worsening shortness of breath, which prompted this visit. He denies chest pain, dizziness, diaphoresis, abdominal pain, nausea, vomiting, dysuria, hematuria, fever, malaise, weakness, sick contacts, or any change in bowel movements. PMHx: Hypertension, COPD on home oxygen, leukemia on ibrutinib PSHx: Noncontributory Family history: Noncontributing Social history: Patient lives with the brother has home, smokes 4-6 cigarettes daily, drinks 3-4 be seen, denies any other drug use Home medication: Ibrutinib, and headache, Allergic history: Aspirin Today, patient seen and examined at the bedside. Patient is still complaining of shortness of breaths and cough. Patient can maintain saturation at 93% with 2 L of oxygen through nasal cannula. Patient reports: No new complaints, Feels better Changes from previous H/P or p: Changes Objective vital signs Vital Sign Date Time Temp Pulse Resp B/P (MAP) Pulse Ox O2 Delivery O2 Flow Rate FiO2 03/24/24 13:00 92 20 111/72 (85) 94 03/24/24 11:55 Nasal Cannula 2.0 03/24/24 11:55 28 03/24/24 09:00 98.4 98.4 Total Intake and Output 03/23/24 03/23/24 03/24/24 15:00 23:00 07:00 Intake Total 300 ml 1130 ml 900 ml Balance 300 ml 1130 ml 900 ml medications Current Medications Medications Dose Ordered Sig/Julieth Route Start Time Stop Time Status Last Admin Dose Admin Ceftriaxone Sodium 50 ml @ 100 mls/hr DAILY IV 03/22/24 10:00 03/24/24 09:56 100 MLS/HR Azithromycin 250 ml @ 125 mls/hr DAILY IV 03/22/24 10:00 03/24/24 10:00 125 MLS/HR Ascorbic Acid 500 mg DAILY PO 03/22/24 10:00 03/24/24 09:56 500 MG Zinc Sulfate 220 mg DAILY PO 03/22/24 10:00 03/24/24 09:56 220 MG Dexamethasone Sodium Phosphate 6 mg DAILY IV 03/22/24 10:00 03/24/24 09:57 6 MG Famotidine 20 mg DAILY PO 03/22/24 10:00 03/24/24 09:56 20 MG Enoxaparin Sodium 40 mg DAILY SC 03/22/24 10:00 03/24/24 09:57 40 MG Polyethylene Glycol 17 gm DAILYPRN PRN PO 03/22/24 23:30 Guaifenesin 200 mg Q6HP PRN PO 03/22/24 23:30 03/24/24 05:35 200 MG Zolpidem Tartrate 5 mg HSPRN PRN PO 03/22/24 23:30 03/23/24 00:14 5 MG Morphine Sulfate 2 mg Q2HPRN PRN IV 03/22/24 23:30 03/23/24 05:44 2 MG Patient Own Medication 1 DAILY PO 03/24/24 12:00 03/24/24 11:36 1 Albuterol 180 mcg QID IN 03/23/24 12:30 03/23/24 06:35 180 MCG Docusate Sodium 100 mg BIDPRN PRN PO 03/23/24 16:30 Examination General Appearance: Alert, Oriented X3, Cooperative, No acute distress HEENT: Atraumatic, PERRLA, EOMI, Mucous membrane moist/pink Respiratory: Decreased breath sound, with bilateral lower zone crackles Cardiovascular: Regular rate, Normal S1, Normal S2, No murmurs, no chest wall tenderness Abdominal: Normal bowel sounds, Soft, No tenderness, No hepatospenomegaly, No masses Extremities: No clubbing, No cyanosis, No edema, Normal pulses, No tenderness/swelling Skin: No rashes, No breakdown, No significant lesion Neuro: Normal gait, Normal speech, Strength at 5/5 X4 ext, Normal tone, Sensation intact, Cranial nerves 3-12 NL, Reflexes 2+ Psych/Mental Status: Mental status NL, Mood NL laboratory and microbiology Laboratory Tests 03/24/24 08:02 Test 03/24/24 08:02 Range/Units Serum Glucose 96 74-106 mg/dL Microbiology Date/Time Source Procedure Growth Status 03/24/24 05:10 Nose MRSA Screen - Final Complete 03/23/24 15:25 Blood Blood Culture - Preliminary NO GROWTH AFTER 24 HOURS OF INCUBATION. Resulted 03/23/24 10:41 Sputum Expectorated Sputum Gram Stain - Final Resulted 03/23/24 10:41 Sputum Expectorated Sputum Respiratory Culture - Preliminary Resulted Labs and/or images reviewed: Labs reviewed by me, Image(s) reviewed by me Problem List/Assessment/Plan Problem List/Assessment/Plan Acute on chronic hypoxic/hypercarbic respiratory failure, likely due to pneumonia/COVID-19/COPD exacerbation Sepsis, likely due to COVID-19/pneumonia Pneumonia, likely due to Gram-positive Gram-negative/COVID-19 COVID-19 Acute exacerbation of COPD Cough, likely due to COVID-19/COPD exacerbation Chest x-ray shows hyperinflated lung, with prominent bronchovascular marking Influenza type a and B are negative Blood, sputum culture are negative Empiric antibiotic, ceftriaxone and azithromycin Remdesivir 100 mg IV daily and Decadron 6 mg daily Albuterol inhaler q.i.d. Tablet ascorbic acid 500 mg daily, tablet zinc 220 mg p.o. daily Guaifenesin 200 mg p.o. q.6 hours p.r.n. Oxygen through nasal cannula 2 liters/minute MRSA nares is negative Prediabetes, Hb A1c is 6.3 Vitamin-D deficiency, repleted Mild hyponatremia, monitoring Hypertension Continue lisinopril and amlodipine Current smoker Patient is consulted for more than 20 minutes for smoking risk and smoking cessation nicotine patch Dyslipidemia Continue simvastatin 40 mg daily Osteoarthritis Cervical with the pain, likely due to osteoarthritis [place] 10 mg t.i.d. p.r.n. Ruled out DVT D-dimer is raised, likely due to COVID-19 Doppler ultrasound of bilateral lower limb is negative DIET: Regular DVT PROPHYLAXIS: Lovenox 40 mg GI PROPHYLAXIS:: Famotidine 20 mg daily BOWEL REGIMEN: Colace 100 mg daily as needed CODE STATUS: Goal of care discussed for more than 278, full code DISPOSITION: [facility] Patient's status discussed with the patient. Case discussed with Dr. Resendez Plan discussed with: Patient, Other (RN) NOE PEREZ Mar 24, 2024 17:02
[2024-03-25] VITALS (8 sets, daily range): BP systolic 99–114; BP diastolic 62–75; PULSE 70–83; RESP 16–20; TEMP 97.6–98.6; O2SAT 92–98
[2024-03-25 07:21] LABS: Basophils # (auto) 0 10 ^3/uL (0-0.2); Basophils % (auto) 0.1 % (0.0-2.0); Eosinophils # (auto) 0 10 ^3/uL (0-0.8); Eosinophils % (auto) 0.2 % (0.0-7.0); Hematocrit 32.4 % (41.0-53.0); Hemoglobin 10.7 g/dL (13.5-17.5); Lymphocytes # (auto) 1.6 10 ^3/uL (0.4-5.4); Mean Corpuscular Hemoglobin 30.1 pg (28.0-32.0); Mean Corpuscular Hgb Conc. 33.1 g/dL (32.0-36.0); Monocytes # (auto) 0.8 10 ^3/uL (0-1.3); Monocytes % (auto) 10.9 % (0.0-12.0); Neutrophils # (auto) 4.9 10 ^3/uL (1.6-8.6); Neutrophils % (auto) 66.8 % (37.0-80.0); Platelet Count (auto) 405 10^3/uL (140-450); Red Blood Cells 3.56 10^6/uL (4.5-5.90); Red Cell Distribution Width 13.7 % (11.8-14.3); White Blood Cell 7.4 10^3/uL (4.4-10.8)
[2024-03-25 07:28] LABS: Alanine Aminotransferase 11 U/L (7-40); Albumin 3.3 g/dL (3.2-4.8); Alkaline Phosphatase 75 U/L (46-116); Anion Gap 2 (5-15); BUN/Creatinine Ratio 21.8 (10.0-20.0); Blood Urea Nitrogen 17 mg/dL (9-23); Calcium 9.4 mg/dL (8.7-10.4); Glucose 96 mg/dL (74-106); Potassium 4.7 mmol/L (3.5-5.1)
[2024-03-25 07:36] LABS: Aspartate Aminotransferase 10 U/L (13-40); Bilirubin, Total 0.2 mg/dL (0.2-1.0); Carbon Dioxide 39 mmol/L (20-31); Chloride 93 mmol/L (98-107); Sodium 134 mmol/L (136-145)
--- NOTE | 2024-03-25 09:37 | DVH ---
CHEST RADIOGRAPH Indication: pNEUMONIA Technique: Single frontal view of the chest was obtained COMPARISON: XY CHEST PORTABLE on DOS: 03/21/24 FINDINGS: Lines and Tubes: None Lungs: Clear Pleura: No effusion. No pneumothorax. Cardiomediastinal contours: Unremarkable Bones: Unremarkable IMPRESSION: No acute disease.
[2024-03-25] MEDS ORDERED: PATIENTS OWN MEDICATION PO SCH (10:00)
--- NOTE | 2024-03-25 15:56 | DVHDSRES ---
Discharge Summary Date of Admission Resident Creating Document: NOE PEREZ Mar 21, 2024 at 21:19 Date of Discharge: Mar 25, 2024 Admitting Diagnosis Shortness of breaths Labs/Diagnostic Data: Laboratory Results Test 03/25/24 05:53 03/22/24 08:00 03/22/24 07:18 03/21/24 21:37 White Blood Count 7.4 10^3/uL (4.4-10.8) Red Blood Count 3.56 10^6/uL (4.5-5.90) Hemoglobin 10.7 g/dL (13.5-17.5) Hematocrit 32.4 % (41.0-53.0) Mean Corpuscular Volume 91.0 fL (80.0-100.0) Mean Corpuscular Hemoglobin 30.1 pg (28.0-32.0) Mean Corpuscular Hemoglobin Concent 33.1 g/dL (32.0-36.0) Red Cell Distribution Width 13.7 % (11.8-14.3) Platelet Count 405 10^3/uL (140-450) Mean Platelet Volume 7.0 fL (6.9-10.8) Neutrophils (%) (Auto) 66.8 % (37.0-80.0) Lymphocytes (%) (Auto) 22.0 % (10.0-50.0) Monocytes (%) (Auto) 10.9 % (0.0-12.0) Eosinophils (%) (Auto) 0.2 % (0.0-7.0) Basophils (%) (Auto) 0.1 % (0.0-2.0) Neutrophils # (Auto) 4.9 10 ^3/uL (1.6-8.6) Lymphocytes # (Auto) 1.6 10 ^3/uL (0.4-5.4) Monocytes # (Auto) 0.8 10 ^3/uL (0-1.3) Eosinophils # (Auto) 0 10 ^3/uL (0-0.8) Basophils # (Auto) 0 10 ^3/uL (0-0.2) Nucleated Red Blood Cells 0.0 % Sodium Level 134 mmol/L (136-145) Potassium Level 4.7 mmol/L (3.5-5.1) Chloride Level 93 mmol/L (98-107) Carbon Dioxide Level 39 mmol/L (20-31) Anion Gap 2 (5-15) Blood Urea Nitrogen 17 mg/dL (9-23) Creatinine 0.78 mg/dL (0.700-1.30) Glomerular Filtration Rate Calc 100 mL/min (>90) BUN/Creatinine Ratio 21.8 (10.0-20.0) Serum Glucose 96 mg/dL (74-106) Calcium Level 9.4 mg/dL (8.7-10.4) Total Bilirubin 0.2 mg/dL (0.2-1.0) Aspartate Amino Transferase (AST) 10 U/L (13-40) Alanine Aminotransferase (ALT) 11 U/L (7-40) Alkaline Phosphatase 75 U/L (46-116) Total Protein 5.0 g/dL (5.7-8.2) Albumin 3.3 g/dL (3.2-4.8) Urine Opiates Screen Neg (NEGATIVE) Urine Fentanyl Screen Neg (NEGATIVE) Urine Barbiturates Screen Neg (NEGATIVE) Urine Phencyclidine Screen Neg (NEGATIVE) Urine Amphetamines Screen Neg (NEGATIVE) Urine Benzodiazepines Screen Neg (NEGATIVE) Urine Cocaine Screen Neg (NEGATIVE) Urine Cannabinoids Screen Neg (NEGATIVE) D-Dimer, Quantitative 0.96 mg/L FEU (0.0-0.49) Direct Bilirubin 0.1 mg/dL (<0.3) Hemoglobin A1c 6.3 % A1C (<5.7) Vitamin D 25-Hydroxy 66.5 ng/mL (30.0-100) Test 03/21/24 20:00 03/21/24 16:05 03/21/24 15:22 03/21/24 12:08 Urine Color Light-yellow (Yellow) Urine Clarity Clear (Clear) Urine pH 5.5 (5.0-9.0) Urine Specific [place] 1.007 (1.001-1.035) Urine Protein Negative (Negative) Urine Ketones Negative (Negative) Urine Blood Negative /uL (Negative) Urine Nitrite Negative (Negative) Urine Bilirubin Negative (Negative) Urine Urobilinogen Normal mg/dL (Negative) Urine Leukocyte Esterase Negative /uL (Negative) Urine RBC <1 /hpf (0 - 3) Urine WBC <1 /hpf (0 - 3) Urine Squamous Epithelial Cells Few /hpf (<5) Urine Bacteria None seen /hpf (None Seen) Urine Mucus Few (None Seen) Urine Glucose Normal mg/dL (Normal) Influenza Type A Antigen Negative (Negative) Influenza Type B Antigen Negative (Negative) SARS-CoV-2 Antigen (Rapid) Positive (NEGATIVE) Troponin I High Sensitivity 12 ng/L (</=54) Thyroid Stimulating Hormone (TSH) 0.61 uIU/mL (0.55-4.78) Plasma/Serum Blood Alcohol < 3.0 mg/dL (<10) B-Type Natriuretic Peptide 60.03 pg/mL (0-100) Other Laboratory Tests 03/25/24 05:53 Brief Hx & Hospital Course: This is a 63-year-old male with a past medical history of hypertension, COPD on home oxygen, and leukemia on ibrutinib, who presented to the ED with a chief complaint of shortness of breath and productive cough for 3 days. He was diagnosed with pneumonia 3 weeks ago and was on oral antibiotics for 10 days. One week ago, he was diagnosed with COVID. For the last 3 days, he has had a cough with yellowish sputum and worsening shortness of breath, prompting this visit. He denies chest pain, dizziness, diaphoresis, abdominal pain, nausea, vomiting, dysuria, hematuria, fever, malaise, weakness, sick contacts, or any change in bowel movements. His past surgical history is noncontributory, and his family history is noncontributing. Socially, he lives with his brother, smokes 4-6 cigarettes daily, drinks 3-4 beers, and denies any other drug use. His home medications include ibrutinib, and he has an allergy to aspirin. Chest x-ray showed bilateral hyperinflated lung, with prominent bronchovascular marking. The patient was treated on the line of acute on chronic hypoxic/hypercarbic respiratory failure due to pneumonia/COVID-19. The patient was given empiric antibiotic of ceftriaxone, azithromycin, IV remdesivir 100 mg daily, nebulized with albuterol, vitamin-C and tablet zinc, and oxygen was given through nasal cannula. Electrolyte imbalance including hyponatremia, vitamin deficiency were supplemented. Home medication for the hypertension and hyperlipidemia including simvastatin, lisinopril and amlodipine were continued. Patient was also counseled for the current smoking. On 03/25, the patient was feeling better since admission, patient was clinically and hemodynamically was stable. Patient was able to maintain oxygen saturation with 2 L of oxygen (the home oxygen amount), discharge plan discussed with the patient and the patient was discharged. Discharge plan: Follow up with the PCP within 1 week after discharge. Follow up with the Oncology on outpatient basis. Tablet azithromycin 500 mg daily for 5 days Tablet prednisone 40 mg daily for 5 days Follow up with the DC clinic within 1 week of the discharge Operations or Procedures [place] [id number] Ph: [phone] DIAGNOSTIC IMAGING Diagnostic Imaging Report : [id number] Signed PATIENT: INO ELIAS ACCT: [id number] UNIT: [id number] : 1960 LOC: EAST ROOM / BED: 0239 / A AGE / SEX: 63 / M ADM STATUS: ADM IN SERVICE 0910 ORDERING PHYSICIAN: NOE PEREZ PROCEDURE(s): CXR1 - CHEST XRAY 1 VIEW REASON: pNEUMONIA ORDER NUMBER(s): [id number], ACCESSION NUMBER(s): [id number] CHEST RADIOGRAPH Indication: pNEUMONIA Technique: Single frontal view of the chest was obtained COMPARISON: XY CHEST PORTABLE on DOS: 03/21/24 FINDINGS: Lines and Tubes: None Lungs: Clear Pleura: No effusion. No pneumothorax. Cardiomediastinal contours: Unremarkable Bones: Unremarkable IMPRESSION: No acute disease. ATED BY: HANSEL QUIROZ MD DICTATED DATE/TIME: 03/25/24933 SIGNED BY: HANSEL QUIROZ MD SIGNED DATE/TIME: 03/25/24933 CC: [place] [address] Ph: [phone] DIAGNOSTIC IMAGING Diagnostic Imaging Report : [id number] Signed PATIENT: INO ELIAS ACCT: [id number] UNIT: [id number] : 1960 LOC: OVERFLOW ROOM / BED: 1009ER / A AGE / SEX: 63 / M ADM STATUS: ADM IN SERVICE 0956 ORDERING PHYSICIAN: BILL DOBBS PROCEDURE(s): BLDVT - BiLat Lower DVT REASON: High risk of DVT / PE ORDER NUMBER(s): [id number], ACCESSION NUMBER(s): [id number] Bilateral lower extremity venous duplex Clinical History: High risk of DVT / PE Comparison: None Technique: Duplex doppler evaluation of the deep venous systems of both lower extremities from the common femoral veins to the popliteal veins including color doppler and spectral/pulsed waveform analysis was performed. Findings: RIGHT SIDE: The common femoral vein demonstrates appropriate compressibility and waveform variability. There is compressibility/patency of the great saphenous vein at the proximal thigh. The femoral vein demonstrates appropriate compressibility and waveform variability. The deep femoral vein demonstrates appropriate compressibility and waveform variability. The popliteal vein demonstrates appropriate compressibility and waveform variability. There is normal compressibility at the tibioperoneal trunk. LEFT SIDE: The common femoral vein demonstrates appropriate compressibility and waveform variability. There is compressibility/patency of the great saphenous vein at the proximal thigh. The femoral vein demonstrates appropriate compressibility and waveform variability. The deep femoral vein demonstrates appropriate compressibility and waveform variability. The popliteal vein demonstrates appropriate compressibility and waveform variability. There is normal compressibility at the tibioperoneal trunk. Impression: 1. No right or left femoropopliteal venous thrombosis. ATED BY: LEONARDO COCHRAN MD DICTATED DATE/TIME: 03/22/24 111 SIGNED BY: LEONARDO COCHRAN MD SIGNED DATE/TIME: 03/22/24 111 CC: Condition at Discharge: Good Final Diagnosis/Problems List Acute on chronic hypoxic/hypercarbic respiratory failure, likely due to pneumonia/COVID-19/COPD exacerbation Sepsis, likely due to COVID-19/pneumonia Pneumonia, likely due to Gram-positive Gram-negative/COVID-19 COVID-19 Acute exacerbation of COPD Cough, likely due to COVID-19/COPD exacerbation Prediabetes, Hb A1c is 6.3 Vitamin-D deficiency, repleted Mild hyponatremia, monitoring Hypertension Current smoker Dyslipidemia Osteoarthritis Cervical with the pain, likely due to osteoarthritis Ruled out DVT, raised D-dimer Mild anemia normocytic normochromic Raised D-dimer, likely due to COVID-19 Discharge Disposition: Home Discharge Instruct/Medications Diet: Consistent carbohydrate Activity: No Restrictions, As Tolerated Follow Up/Referral: follow up with the PCP within one week after discharge follow up with the oncology on outpatient basis follow up on discharge clinic within one week after discharge Medications: Tab Azithromycin daily for 5 days tab Prednisone for 5 days contine home meds Discharge Statement: "Patient was advised to return to the ER or call 911 if any headaches, dizziness, shortness of breath, chest pain, abdominal pain, bleeding, fevers, or worsening of medical condition. Patient was counseled about treatment plan, medications, possible side effects, patientverbalized understanding. All questions were answered to the best of my ability. This discharge took greater then 30 minutes in planning, reviewing documentation, counseling the patient, and discussing with other team members." ASSESSMENT ASSESSMENT Assessment Acute HYpoxic respiratory failure due to copd exacerbation NOE PEREZ Mar 25, 2024 15:56
[2024-03-26] MEDS ORDERED: AZIT500T66 PO (10:23)
[2024-03-26] MEDS ORDERED: PRED20TA2 PO (10:23)
== END 2024-03-25 16:52 | disposition home or self-care (01) | DRG 871 ==
LOC: ER 11:18 → EDBD 11:18 → OVERFLOW 21:19 → EAST 21:21
PROVIDERS: ADMIT Student in an Organized Health Care Education/Training Program; ATTEND Internal Medicine
PROC: XW033E5 Introduction of Remdesivir Anti-infective into Peripheral Vein, Percutaneous Approach, New Technology Group 5 (ICD-10-PCS; principal; 2024-03-23)
DX: A41.89 Other specified sepsis (principal); J12.82 Pneumonia due to coronavirus disease 2019; J96.22 Acute and chronic respiratory failure with hypercapnia; J96.21 Acute and chronic respiratory failure with hypoxia; U07.1 COVID-19; J15.69 Pneumonia due to other Gram-negative bacteria; J15.9 Unspecified bacterial pneumonia; J44.1 Chronic obstructive pulmonary disease with (acute) exacerbation; J44.0 Chronic obstructive pulmonary disease with (acute) lower respiratory infection; I10 Essential (primary) hypertension; R73.03 Prediabetes; E55.9 Vitamin D deficiency, unspecified; E78.5 Hyperlipidemia, unspecified; D64.9 Anemia, unspecified; F17.210 Nicotine dependence, cigarettes, uncomplicated; Z88.6 Allergy status to analgesic agent; Z79.899 Other long term (current) drug therapy; Z99.81 Dependence on supplemental oxygen; M19.90 Unspecified osteoarthritis, unspecified site
CPT/HCPCS: 36415; 71045; 80048; 80053; 80076; 80307; 80320; 81001; 82306; 83036; 83880; 84443; 84484; 85025; 85379; 87040; 87070; 87081; 87205; 87426; 87804; 93970; 94640; 94644; 97163; G0378; J1100

== ENCOUNTER 2024-09-11 18:23 | Inpatient (IN) | payer OTHER, MEDICAID ==
[~2024-09-11] VITALS: Ht 172.7 cm; Wt 50.4 kg
[~2024-09-11 18:23] MED LIST changes: +AZIT500T66 PO; +PRED20TA2 PO
--- NOTE | 2024-09-11 18:44 | ED.PDOC ---
SOB-HPI HPI Comments HPI: This is a 63 year old male presenting to the ED with chief complaint of SOB. Patient reports that he has been experiencing worsening SOB for the past 2 days. Patient relays that he had ran out of medication for his nebulizers, so he hasn't been using them. Patient denies any chest pain, cough, dizziness, fever, chills, headache, or N/V. Initial Vitals BP: HR: RR: 22 O2 Sat: 82% on RA Temp: Past Medical history: Leukemia, COPD, HTN, HLD Past Surgical history: Denies Medications: Breathing treatments Social History: Cigarette smoker, Heavy ETOH use, Marijuana use Allergies: ASA CURT: HPI: Poor Historian. Patient did not use any of has been doing treatments today. Patient is oxygen dependent at home 3 L nasal cannula. He arrived to the ED no away. He was found hypoxic in the 80s , supplemental oxygen was placed. REVIEW OF SYSTEMS: CONSTITUTIONAL: Denies acute: fever, diaphoresis, chills, HEAD: Denies acute: headache, photophobia Eyes: Denies acute: Double vision, vision loss, eye pain, eye discharge. EARS: Denies acute: tinnitus, hearing loss, ear discharge, ear pain, THROAT: Denies acute: sore throat, swelling, difficulty swallowing , pain with swallowing, change in voice. NECK: Denies acute: neck pain, neck swelling, stiff neck. HEART: Denies acute : chest pain, palpitations, LUNGS: Denies acute: , wheezing, cough, hemoptysis ABDOMEN: Denies acute: abdominal pain, Nausea, Vomiting, diarrhea, melena , hematemesis, hematochezia SKIN: Denies acute: rash, redness, lesions, itchiness. EXTREMITIES: Denies acute: calf pain, numbness, tingling, weakness, denies pain in extremity. Denies acute: Low back pain. Neuro: Denies acute: focal neurological deficit, motor or sensory focal neurological deficit, tremors, seizure like activity, confusion, dizziness, change in mental status, loss of bowel or bladder function, cauda equina like symptoms. : Denies acute: dysuria, hematuria, flank pain, increase in urinary frequency. PSYCH: Denies acute: hallucination, suicidal ideation, homicidal ideation. PHYSICAL EXAM: General: ----[id number]----acute distress, awake and alert. Head: normocephalic, atraumatic. Neck: supple, trachea is midline, no swelling. Throat: Normal phonation. Eyes:, no erythema, no purulent discharge, no proptosis, no icterus. Heart: regular rate, regular rhythm, no significant murmur appreciated. Lungs: Mild apparent respiratory distress, Able to speak in full sentences. Slight bilateral wheezing, no rhonchi, no crackles. No stridors Abdomen: non tender to palpation, non distended, soft, no guarding, no rebound, + bowel sounds. Neuro: Awake, Alert, oriented to name, self, situation, follows commands GCS=15. Speech is normal. Skin: no petechia, no purpura, no cyanosis, non-pale, not jaundice. Lower extremities: --no - Pitting edema no deformity, no focal swelling, no calf TTP. Makes eye contact. moves all four extremities. Face: no apparent facial droop. Ambulating in the ED independently. ED COURSE: DISCLAIMER: This medical document was created using an electronic medical record system with voice recognition software and computerized dictation system. Although this document has been carefully reviewed, there might still be some phonetic and typographical errors. Occasional wrong-word or "sound-alike" substitutions may have occurred due to the inherent limitations of voice recognition software. These areas are purely typographical due to imperfections of the software programs and do not reflect any compromise in the patient's medical care. Please read the chart carefully and recognize, using context, where these substitutions have occurred. Time Seen by MD: 18:42 Primary Care Provider: ELI Reviewed notes: Medications, Allergies Information Source: Patient Mode of Arrival: Ambulatory Was a procedure done? Was a procedure done?: No Differential Dx Differential Diagnosis: Other (DDx include ACS, unstable angina, anxiety, PE, pneumothroax, neoplasm, cardiac ischemia, COPD, asthma, CHF, pleural effusion, tobacco abuse, pneumonia, hypoxia, hypercapnia, anemia., infection/sepsis., pulmonary edema. Asthma, Cardiac tamponade, infection.) X-Ray, Labs, Meds, VS Vital Signs Date Time Temp Pulse Resp B/P (MAP) Pulse Ox O2 Delivery O2 Flow Rate FiO2 09/11/24 20:31 18 98 Nasal Cannula* 3 32 09/11/24 19:07 98.0 97 20 125/80 (95) 96 98.0 09/11/24 18:35 98.4 98 24 133/83 (100) 82 98.4 09/11/24 18:35 24 82 Room Air* 0 21 Lab Test 09/11/24 19:40 09/11/24 18:55 Range/Units Troponin I High Sensitivity 7 6 </=54 ng/L White Blood Count 7.0 4.4-10.8 10^3/uL Red Blood Count 4.59 4.5-5.90 10^6/uL Hemoglobin 14.0 13.5-17.5 g/dL Hematocrit 42.3 41.0-53.0 % Mean Corpuscular Volume 92.2 80.0-100.0 fL Mean Corpuscular Hemoglobin 30.5 28.0-32.0 pg Mean Corpuscular Hemoglobin Concent 33.1 32.0-36.0 g/dL Red Cell Distribution Width 19.3 H 11.8-14.3 % Platelet Count 266 140-450 10^3/uL Mean Platelet Volume 7.0 6.9-10.8 fL Neutrophils (%) (Auto) 37.7 37.0-80.0 % Lymphocytes (%) (Auto) 51.5 H 10.0-50.0 % Monocytes (%) (Auto) 9.0 0.0-12.0 % Eosinophils (%) (Auto) 0.6 0.0-7.0 % Basophils (%) (Auto) 1.2 0.0-2.0 % Neutrophils # (Auto) 2.6 1.6-8.6 10 ^3/uL Lymphocytes # (Auto) 3.6 0.4-5.4 10 ^3/uL Monocytes # (Auto) 0.6 0-1.3 10 ^3/uL Eosinophils # (Auto) 0 0-0.8 10 ^3/uL Basophils # (Auto) 0.1 0-0.2 10 ^3/uL Nucleated Red Blood Cells 0.0 % Sodium Level 137 136-145 mmol/L Potassium Level 4.5 3.5-5.1 mmol/L Chloride Level 101 98-107 mmol/L Carbon Dioxide Level 27 20-31 mmol/L Anion Gap 9 5-15 Blood Urea Nitrogen 7 L 9-23 mg/dL Creatinine 0.85 0.700-1.30 mg/dL Glomerular Filtration Rate Calc 98 >90 mL/min BUN/Creatinine Ratio 8.2 L 10.0-20.0 Serum Glucose 84 74-106 mg/dL Lactic Acid Level 1.8 0.4-2.0 mmol/L Calcium Level 8.7 8.7-10.4 mg/dL Total Bilirubin 0.5 0.2-1.0 mg/dL Aspartate Amino Transferase (AST) 17 <34 U/L Alanine Aminotransferase (ALT) < 9 7-40 U/L Alkaline Phosphatase 108 46-116 U/L B-Type Natriuretic Peptide 23.67 0-100 pg/mL Total Protein 6.3 5.7-8.2 g/dL Albumin 4.4 3.2-4.8 g/dL Current Medications Medications (Trade) Dose Ordered Sig/Julieth Route Start Time Stop Time Status Last Admin Albuterol (Ventolin Medneb) 2.5 mg ONCE ONCE NEB 09/11/24 18:45 09/11/24 18:46 DC 09/11/24 20:31 Ipratropium [place] (Atrovent Medneb) 1 mg ONCE ONCE NEB 09/11/24 18:45 09/11/24 18:46 DC 09/11/24 20:31 Methylprednisolone Sodium Succinate (Solu Medrol) 125 mg ONCE ONCE IV 09/11/24 18:45 09/11/24 18:46 DC 09/11/24 19:04 [place] [id number] Ph: [phone] DIAGNOSTIC IMAGING Diagnostic Imaging Report : [id number] Signed PATIENT: INO ELIAS ACCT: [id number] UNIT: [id number] : 1960 LOC: ER ROOM / BED: / AGE / SEX: 63 / M ADM STATUS: REG ER SERVICE 184 ORDERING PHYSICIAN: GRZEGORZ WELLER DO PROCEDURE(s): CXRP - CHEST PORTABLE REASON: sob ORDER NUMBER(s): [id number], ACCESSION NUMBER(s): [id number] EXAMINATION: AP portable chest radiograph CLINICAL HISTORY: sob COMPARISON: XY CHEST XRAY 1 VIEW on DOS: 03/25/24, XY CHEST PORTABLE on DOS: 03/21/24 FINDINGS/IMPRESSION: There is mild prominence of the interstitial markings. There is mild nonspecific fullness of the latanya,. The cardiomediastinal silhouette appears unchanged. No pleural effusion or pneumothorax. Unchanged osseous structures. ATED BY: MATI WEATHERS MD DICTATED DATE/TIME: 09/11/241918 SIGNED BY: MATI WEATHERS MD SIGNED DATE/TIME: 09/11/241918 CC: Time of 1ST Reevaluation: 19:42 Reevaluation 1ST: Unchanged Patient Education/Counseling: Diagnosis, Treatment Family Education/Counseling: No Family Present Comments Patient presented with the above HPI.----dyspnea--workup was initiated. patient was found with the above mentioned diagnosis. the following medications were ordered: please refer to order lists of meds and tests obtained by myself Dr. Weller. Patient ED course and VS have been stabilized. Patient has been reassessed in the ED and remained in a stable condition. Pertinent incidental findings were discussed with the patient and/or family. Patient/family voices understanding and is agreeable with plan. Patient has been observed in the ED adequate length of time to insure i mprovement/stability. Escalation of care considered: Consideration of escalation to observation or admission Patient was placed on supplemental oxygen Patient was ADMITTED to the medicine team for further evaluation and treatment of their presentation. All the reports of any imaging studies that were ordered by myself were reviewed by myself. Departure 1 Departure Time of Disposition: 19:29 Impression: Primary Impression: COPD exacerbation Additional Impression: Dyspnea Disposition: 09 ADMITTED INPATIENT Admit to: Tele Condition: Guarded Discharged With: Self Critical Care Note Critical Care Time?: No I personally scribed for GRZEGORZ WELLER DO ([email or web address]) on 09/11/24 at 18:44. Electronically submitted by Ricardo Montanez ([email or web address]). I personally scribed for GRZEGORZ WELLER DO ([email or web address]) on 09/11/24 at 19:06. Electronically submitted by Ricardo Montanez ([email or web address]). GRZEGORZ WELLER DO Sep 11, 2024 18:44
[2024-09-11] MEDS: methylPREDNISolone SOD SUCC 125 MG/2 ML VL IV ONE (19:04)
[2024-09-11 19:16] LABS: Basophils # (auto) 0.1 10 ^3/uL (0-0.2); Basophils % (auto) 1.2 % (0.0-2.0); Eosinophils # (auto) 0 10 ^3/uL (0-0.8); Eosinophils % (auto) 0.6 % (0.0-7.0); Hematocrit 42.3 % (41.0-53.0); Lymphocytes # (auto) 3.6 10 ^3/uL (0.4-5.4); Lymphocytes % (auto) 51.5 % (10.0-50.0); Mean Corpuscular Hemoglobin 30.5 pg (28.0-32.0); Mean Corpuscular Hgb Conc. 33.1 g/dL (32.0-36.0); Mean Corpuscular Volume 92.2 fL (80.0-100.0); Monocytes # (auto) 0.6 10 ^3/uL (0-1.3); Neutrophils # (auto) 2.6 10 ^3/uL (1.6-8.6); Neutrophils % (auto) 37.7 % (37.0-80.0); Platelet Count (auto) 266 10^3/uL (140-450); Red Blood Cells 4.59 10^6/uL (4.5-5.90); Red Cell Distribution Width 19.3 % (11.8-14.3)
--- NOTE | 2024-09-11 19:22 | DVH ---
EXAMINATION: AP portable chest radiograph CLINICAL HISTORY: sob COMPARISON: XY CHEST XRAY 1 VIEW on DOS: 03/25/24, XY CHEST PORTABLE on DOS: 03/21/24 FINDINGS/IMPRESSION: There is mild prominence of the interstitial markings. There is mild nonspecific fullness of the latanya,. The cardiomediastinal silhouette appears unchanged. No pleural effusion or p neumothorax. Unchanged osseous structures.
[2024-09-11 19:36] LABS: Albumin 4.4 g/dL (3.2-4.8); Alkaline Phosphatase 108 U/L (46-116); Anion Gap 9 (5-15); Aspartate Aminotransferase 17 U/L (<34); BUN/Creatinine Ratio 8.2 (10.0-20.0); Carbon Dioxide 27 mmol/L (20-31); Chloride 101 mmol/L (98-107); Glucose 84 mg/dL (74-106); Potassium 4.5 mmol/L (3.5-5.1); Sodium 137 mmol/L (136-145); Total Protein 6.3 g/dL (5.7-8.2)
[2024-09-11 19:37] LABS: Bilirubin, Total 0.5 mg/dL (0.2-1.0)
[2024-09-11 19:39] LABS: Alanine Aminotransferase < 9 U/L (7-40); Blood Urea Nitrogen 7 mg/dL (9-23); Calcium 8.7 mg/dL (8.7-10.4)
[2024-09-11] MEDS: ALBUTEROL SULF 2.5 MG/0.5ML(0.5%) NEB SOLN NEB ONE (20:31)
[2024-09-11] MEDS: IPRATROPIUM BROM 0.5 MG/2.5ML INH SOL NEB ONE (20:31)
[2024-09-11 23:45] VITALS: BP 125/80; PULSE 80; RESP 18; TEMP 98; O2SAT 98
[2024-09-11] MEDS ORDERED: MORPHINE SULFATE INJ 2 MG/ml SYRG IV PRN (23:45)
[2024-09-11] MEDS ORDERED: NITROGLYCERIN 0.4 MG SL TAB SL PRN (23:45)
[2024-09-12] VITALS (11 sets, daily range): BP systolic 124–126; BP diastolic 69–72; PULSE 71–83; RESP 15–22; TEMP 98–98.3; O2SAT 93–100
[2024-09-12] MEDS: LEVALBUTEROL HCL 1.25 MG/3 ML NEB NEB SCH (00:31)
[2024-09-12] MEDS: IPRATROPIUM BROM 0.5 MG/2.5ML INH SOL NEB SCH (00:31)
[2024-09-12] MEDS: cefTRIAXone 1GM/50ML D5W 50 ML IV ONE (02:24)
[2024-09-12] MEDS: DOXYCYCLINE 100 MG TAB/CAP PO ONE (02:24)
[2024-09-12 05:23] LABS: COVID19 ANTIGEN SOFIA FIA NEGATIVE (NEGATIVE); Rapid Influenza A Negative (Negative); Rapid Influenza B Negative (Negative)
[2024-09-12] MEDS: PANTOPRAZOLE 40 MG TAB PO SCH (05:25)
--- NOTE | 2024-09-12 05:59 | DVHHPRES ---
History of Present Illness Resident Creating Document: JHAJOzFRANCISCA RESIDENT History of Present Illness Patient is a 63-year-old male with a past medical history of COPD on home oxygen 2 L/min, hypertension, leukemia on ibrutinib presented to the ED with a chief complaint of worsening shortness of breath. Patient reported since the last 1 week he has been having worsening shortness of breath associated with cough with yellowish phlegm , reported feeling hot but denied any chills. Patient denied chest pain, palpitations, dizziness. Past medical history: Per HPI Surgical history: Denies Social history: Patient has a heavy ex-smoker with a 20 pack year smoking history but currently smokes 1-2 cigarettes per day, drinks about 6 pack beer every day, denies any other drug use Home medications: Imbruvica ( ibrutinib ) 420 mg daily for leukemia, Spiriva inhaler, rescue inhalers albuterol and nebulizer, [place] 12/26/2024 3 times daily for chronic back pain Review of Systems Review of Systems Patient seen and examined at the bedside Reports of shortness of breath function class 3 Denies chest pain, palpitations, dizziness Allergies: Coded Allergies: Aspirin (Unverified Allergy, Mild, HIVES, 02/11/18) Medications Current Medications Medications Dose Ordered Sig/Julieth Route Start Time Stop Time Status Last Admin Dose Admin Nitroglycerin 0.4 mg Q5MINP PRN SL 09/11/24 23:45 Morphine Sulfate 2 mg Q30M PRN IV 09/11/24 23:45 Levalbuterol HCl 0.625 mg Q6HR NEB 09/12/24 00:00 09/12/24 00:31 0.625 MG Ipratropium [place] 0.5 mg Q6HR NEB 09/12/24 00:00 09/12/24 00:31 0.5 MG Ceftriaxone Sodium 50 ml @ 100 mls/hr DAILY@09 IV 09/13/24 09:00 Doxycycline Monohydrate 100 mg Q12HR PO 09/12/24 10:00 Methylprednisolone Sodium Succinate 40 mg DAILY IV 09/12/24 10:00 Pantoprazole Sodium 40 mg DAILY@0600 PO 09/12/24 06:00 09/12/24 05:25 40 MG Enoxaparin Sodium 40 mg DAILY SC 09/12/24 10:00 Exam Vital Signs Vital Signs Date Time Temp Pulse Resp B/P (MAP) Pulse Ox O2 Delivery O2 Flow Rate FiO2 09/12/24 04:00 82 09/12/24 02:25 98.2 18 126/77 (93) 96 98.2 09/12/24 00:31 Nasal Cannula* 2 28 Exam Gen - no pallor, no icterus, no cyanosis, no clubbing, no LAD, no edema . Skin - Patients skin is warm and dry. HEENT - normocephalic, atraumatic, moist mucous membranes. Neck - full ROM, no LAD, no JVD Pulmonary - B/L diminished breath sounds, no crackles, no wheezing, no stridor. cardiovascular - regular S1,S2 heard, no added sounds, no murmurs heard. GI - soft, nontender abdomen. no hepatospleenomegaly. Bowel sounds normoactive Neurological - Patient is A/O X 3 . Bilateral upper extremity strength 5/5, bilateral lower extremity strength 5/5, no facial droop, normal speech, no tremor, no sensory deficiets. Labs/Xrays Labs Test 09/12/24 04:53 09/11/24 19:40 09/11/24 18:55 Range/Units Influenza Type A Antigen Negative Negative Influenza Type B Antigen Negative Negative SARS-CoV-2 Antigen (Rapid) Negative NEGATIVE Troponin I High Sensitivity 7 </=54 ng/L White Blood Count 7.0 4.4-10.8 10^3/uL Red Blood Count 4.59 4.5-5.90 10^6/uL Hemoglobin 14.0 13.5-17.5 g/dL Hematocrit 42.3 41.0-53.0 % Mean Corpuscular Volume 92.2 80.0-100.0 fL Mean Corpuscular Hemoglobin 30.5 28.0-32.0 pg Mean Corpuscular Hemoglobin Concent 33.1 32.0-36.0 g/dL Red Cell Distribution Width 19.3 H 11.8-14.3 % Platelet Count 266 140-450 10^3/uL Mean Platelet Volume 7.0 6.9-10.8 fL Neutrophils (%) (Auto) 37.7 37.0-80.0 % Lymphocytes (%) (Auto) 51.5 H 10.0-50.0 % Monocytes (%) (Auto) 9.0 0.0-12.0 % Eosinophils (%) (Auto) 0.6 0.0-7.0 % Basophils (%) (Auto) 1.2 0.0-2.0 % Neutrophils # (Auto) 2.6 1.6-8.6 10 ^3/uL Lymphocytes # (Auto) 3.6 0.4-5.4 10 ^3/uL Monocytes # (Auto) 0.6 0-1.3 10 ^3/uL Eosinophils # (Auto) 0 0-0.8 10 ^3/uL Basophils # (Auto) 0.1 0-0.2 10 ^3/uL Nucleated Red Blood Cells 0.0 % Sodium Level 137 136-145 mmol/L Potassium Level 4.5 3.5-5.1 mmol/L Chloride Level 101 98-107 mmol/L Carbon Dioxide Level 27 20-31 mmol/L Anion Gap 9 5-15 Blood Urea Nitrogen 7 L 9-23 mg/dL Creatinine 0.85 0.700-1.30 mg/dL Glomerular Filtration Rate Calc 98 >90 mL/min BUN/Creatinine Ratio 8.2 L 10.0-20.0 Serum Glucose 84 74-106 mg/dL Lactic Acid Level 1.8 0.4-2.0 mmol/L Calcium Level 8.7 8.7-10.4 mg/dL Total Bilirubin 0.5 0.2-1.0 mg/dL Aspartate Amino Transferase (AST) 17 <34 U/L Alanine Aminotransferase (ALT) < 9 7-40 U/L Alkaline Phosphatase 108 46-116 U/L B-Type Natriuretic Peptide 23.67 0-100 pg/mL Total Protein 6.3 5.7-8.2 g/dL Albumin 4.4 3.2-4.8 g/dL Assessment/Plan Assessment/Plan Acute on chronic hypoxic respiratory failure likely due to COPD exacerbation COPD exacerbation likely due to pneumonitis Pneumonitis likely due to Gram +/- bacteria - IV ceftriaxone and p.o. doxycycline - duo nebs q.6 hours - Solu-Medrol 40 mg daily - COVID and influenza negative - sputum culture pending H/O leukemia - patient asked to bring his medication Imbruvica as it is non formulary PUD prophylaxis: Protonix DVT prophylaxis: Enoxaparin Goals of care discussed with the patient for over 21 minutes. Full code Time spent: 39 minutes Plan discussed with Dr. Zimmerman Plan discussed with: Patient My Orders Orders - FRANCISCA TRENT Procedure Category Date Status Time Admit ADMIT 09/11/24 Transmitted 23:33 Oxygen By Nasal RT 09/11/24 Transmitted Cannula 23:33 Stat Ekg For Chest ZACH 09/11/24 In Process Pain 23:33 Notify Md Of Changes ZACH 09/11/24 In Process From Base 23:33 Latex Caster For ZACH 09/11/24 In Process 24 Hours 23:33 Emergency Dysrhythmia ZACH 09/11/24 In Process Protocol 23:33 Rhythm Strips Once ZACH 09/11/24 In Process Every Shift 23:33 Nitroglycerin PHA 09/11/24 In Process Sublingual (Ntrostat 23:45 Morphine Sulfate PHA 09/11/24 In Process Injection 23:45 Levalbuterol Hcl PHA 09/12/24 In Process (Xopenex Medneb) 00:00 Ipratropium Medneb PHA 09/12/24 In Process (Atrovent Medneb) 00:00 Doxycycline Tablet PHA 09/12/24 In Process (Vibramycin Tablet) 10:00 Methylprednisolone PHA 09/12/24 In Process Sod Succ (Solu Medrol 10:00 Echo 2d Mode Cardiac US 09/12/24 Logged DOP 02:00 Urinalysis LAB 09/12/24 Logged 02:00 Pantoprazole Tablet PHA 09/12/24 In Process (Protonix Tablet) 06:00 Enoxaparin Sodium PHA 09/12/24 In Process (Lovenox) 10:00 Ceftriaxone 1gm/50ml PHA 09/13/24 In Process D5w (Rocephin) 09:00 Date of Service: Sep 11, 2024 Billing Provider: JENNI ZIMMERMAN MD Common Visit Codes: [id number] INP/OBS CARE (HIGH) Secondary Visit Codes: [id number] CARE PLAN 30 MINUTES FRANCISCA TRENT RESIDENT Sep 12, 2024 05:59
[2024-09-12 07:18] LABS: Urine Bacteria FEW /hpf (None Seen); Urine Blood Negative /uL (Negative); Urine Clarity Clear (Clear); Urine Color Yellow (Yellow); Urine Protein, UAD TRACE (Negative); Urine Specific Gravity 1.017 (1.001-1.035); Urine Sperm PRESENT /hpf (None Seen); Urine Squamous Epithelial Cell FEW /hpf (<5); Urine Urobilinogen Normal (Negative); Urine WBC 1 /HPF (0-3); Urine pH 5.5 (5.0-9.0)
[2024-09-12 09:17] LABS: Cannabinoid Screen, Urine Pos (NEGATIVE)
[2024-09-12 09:18] LABS: Amphetamine Screen, Urine Neg (NEGATIVE); Barbiturate Scree,Urine Neg (NEGATIVE); Benzodiazephine Screen, Urine Neg (NEGATIVE); Cocaine Screen, Urine Neg (NEGATIVE); Opiate Scree,Urine Neg (NEGATIVE); Phencyclidine Screen, Urine Neg (NEGATIVE)
[2024-09-12 10:28] LABS: Partial Thromboplastin Time 28.8 SEC (24.5-34.5); Prothrombin Time 10.6 sec (9.3-11.8)
[2024-09-12] MEDS: DOXYCYCLINE 100 MG TAB/CAP PO SCH (10:29)
[2024-09-12] MEDS: HYDROcodone-ACET 10/325MG TAB PO PRN (10:29)
[2024-09-12] MEDS: methylPREDNISolone SOD SUCC 40 MG/ML VL IV SCH (10:30)
[2024-09-12] MEDS: ENOXAPARIN SOD 40 MG/0.4 ML SYRINGE SC SCH (10:30)
--- NOTE | 2024-09-12 14:56 | DVHPNRES ---
Progress Note Date Seen: Sep 12, 2024 Resident Creating Document: MARVIN ALBA RESIDENT Medical Necessity Reason Pt with a Central, PICC or Fol: No Subjective Review of Systems Patient is a 63-year-old male with a past medical history of COPD on home oxygen 2 L/min, hypertension, leukemia on ibrutinib presented to the ED with a chief complaint of worsening shortness of breath for a week. Patient reports worsening shortness of breaths, he did not know how to titrate his oxygen up, associated with cough which is productive with yellow to white phlegm. He was using his inhalers more during the past week. Past medical history: COPD on 2 L home oxygen, hypertension, leukemia Surgical history: Denies Social history: Patient has a heavy ex-smoker with a 20 pack year smoking history but currently smokes 1-2 cigarettes per day, drinks about 6 pack beer every day, denies any other drug use Home medications: Imbruvica ( ibrutinib ) 420 mg daily for leukemia, Spiriva inhaler, rescue inhalers albuterol and nebulizer, [place] 12/26/2024 3 times daily for chronic back pain Patient seen and examined at bedside. Bilateral decreased air entry. Objective vital signs Vital Sign Date Time Temp Pulse Resp B/P (MAP) Pulse Ox O2 Delivery O2 Flow Rate FiO2 09/12/24 12:00 84 09/12/24 12:00 23 134/87 (103) 91 09/12/24 08:54 Nasal Cannula* 2 28 09/12/24 08:00 97.9 97.9 medications Current Medications Medications Dose Ordered Sig/Julieth Route Start Time Stop Time Status Last Admin Dose Admin Nitroglycerin 0.4 mg Q5MINP PRN SL 09/11/24 23:45 Morphine Sulfate 2 mg Q30M PRN IV 09/11/24 23:45 Levalbuterol HCl 0.625 mg Q6HR NEB 09/12/24 00:00 09/12/24 06:33 0.625 MG Ipratropium [place] 0.5 mg Q6HR NEB 09/12/24 00:00 09/12/24 06:33 0.5 MG Ceftriaxone Sodium 50 ml @ 100 mls/hr DAILY@09 IV 09/13/24 09:00 Methylprednisolone Sodium Succinate 40 mg DAILY IV 09/12/24 10:00 09/12/24 10:30 40 MG Pantoprazole Sodium 40 mg DAILY@0600 PO 09/12/24 06:00 09/12/24 05:25 40 MG Enoxaparin Sodium 40 mg DAILY SC 09/12/24 10:00 09/12/24 10:30 40 MG Acetaminophen/ Hydrocodone Bitart 1 tab Q8HP PRN PO 09/12/24 09:30 09/12/24 10:29 1 TAB Azithromycin 250 ml @ 125 mls/hr DAILY IV 09/13/24 10:00 UNV Examination Patient lying in bed in ER, no acute distress General: afebrile, mucosae are moist Cardiovascular: Regular S1 and S2. No murmurs, gallops or rubs. No JVD elevation. No pedal edema Respiratory: Decreased air entry auscultation. Wheezing or crackles heard. On 2 L NC Abdomen: Soft, nontender, nondistended, normoactive bowel sounds, no rebound tenderness, no organomegaly, no masses Genitourinary: Deferred MSK/skin: Mobilizes 4 limbs. Skin is dry and warm Neurological: No motor, no sensitive deficits, normal speech. Pupils are isocoric and reactive. Psych/Mental Status: A/Ox3 laboratory and microbiology Laboratory Tests 09/11/24 18:55 Test 09/11/24 18:55 Range/Units Serum Glucose 84 74-106 mg/dL Labs and/or images reviewed: Labs reviewed by me, Image(s) reviewed by me Problem List/Assessment/Plan Problem List/Assessment/Plan Acute on chronic hypoxic respiratory failure likely due to COPD exacerbation Acute COPD exacerbation likely due to pneumonitis Sepsis secondary to Pneumonia likely due to Gram +/- bacteria - IV ceftriaxone and p.o. doxycycline starting 09/11, p.o. doxycycline changed to IV azithromycin 09/12. - duo nebs q.6 hours - Solu-Medrol 40 mg daily - COVID and influenza negative - sputum culture pending -Mucomyst H/O leukemia - patient asked to bring his medication ibrutinib as it is non formulary Vitamin-D deficiency Supplemented Cannabis use dependence Counseled regarding cessation for more than 20 minutes PUD prophylaxis: Protonix DVT prophylaxis: Enoxaparin Plan discussed with patient in which all questions have been answered Goals of care discussed with patient for more than 20 minutes, full code status Case discussed with Dr. Resendez Plan discussed with: Patient My Orders My Orders Orders - MARVIN ALBA Procedure Category Date Status Time Hydrocodone-Acet PHA 09/12/24 In Process 10/325mg Tab ([place] 09:30 Azithromycin 500mg/ PHA 09/13/24 Logged 250ml (Zithromax 50 10:00 Azithromycin 500mg/ PHA 09/12/24 Logged 250ml (Zithromax 50 14:15 Date of Service: Sep 12, 2024 Billing Provider: TIMOTHY MORA MD Common Visit Codes: [id number] INP/OBS CARE(HIGH) MARVIN ALBA Sep 12, 2024 14:56 TIMOTHY MORA MD Sep 15, 2024 10:07
[2024-09-12] MEDS ORDERED: MORPHINE SULFATE INJ 2 MG/ml SYRG IV PRN (15:00)
[2024-09-12] MEDS ORDERED: ACETAMINOPHEN 500 MG TAB or CAP PO PRN (15:00)
[2024-09-12] MEDS: ERGOCALCIFEROL 50,000 UNIT(1.25MG) CAP PO SCH (15:20)
[2024-09-12] MEDS: AZITHROMYCIN 500MG/ 250ML 250 ML IV ONE (15:20)
[2024-09-12] MEDS: ACETYLCYSTEINE 10 %(100MG/ML) SOL 4ML NEB SCH (19:14)
--- NOTE | 2024-09-12 19:47 | DVHSR ---
APPROVED REPORT EXAM: Two-dimensional and M-mode echocardiogram with Doppler and color Doppler. Blood Pressure: 126/69 mmHg INDICATION Dyspnea ?CHF RISK FACTORS Height: 5' 7", Weight: 118 DIMENSIONS LVDd4.0 (3.8-5.7cm)LA (2D)3.8 (1.9-4.0cm)Aortic Root2.8 (2.0-3.7cm) LVDs2.7 (2.5-4.0cm)LA (MM) (1.9-4.0cm)Aortic Cusp Exc1.4 (1.5-2.0cm) EF (%) 60.0 (55-70%)Rt. Atrium3.5 (1.9-4.0cm)Asc. Aorta cm IVSd0.9 (0.7-1.1cm)RV (D) (1.8-2.4cm) PWd0.8 (0.7-1.1cm) Mitral Valve MitralMitral Stenosis E wave0.90m/sMV Mean GR.mmHg A wave0.80m/sMV Peak GR.mmHg E/A ratio1.12D MVAcm2 Aortic Valve Aortic ValveAortic Stenosis V10.70m/Kareem Mean GR.2mmHg V21.00m/Kareem Peak GR.5mmHg LVOT Diameter2.0 (1.8-2.4cm)Doppler AVA2.20cm2 Conclusion LVEF 50-55%, RV function normal No significant valve disease noted
[2024-09-13] VITALS (16 sets, daily range): BP systolic 98–148; BP diastolic 62–89; PULSE 66–96; RESP 16–20; TEMP 97.8–98.2; O2SAT 93–100
[2024-09-13 07:43] LABS: Basophils # (auto) 0 10 ^3/uL (0-0.2); Basophils % (auto) 0.2 % (0.0-2.0); Eosinophils # (auto) 0 10 ^3/uL (0-0.8); Eosinophils % (auto) 0.1 % (0.0-7.0); Hemoglobin 13.3 g/dL (13.5-17.5); Lymphocytes # (auto) 1.9 10 ^3/uL (0.4-5.4); Lymphocytes % (auto) 28.8 % (10.0-50.0); Mean Corpuscular Hemoglobin 30.5 pg (28.0-32.0); Mean Corpuscular Hgb Conc. 33.3 g/dL (32.0-36.0); Mean Corpuscular Volume 91.7 fL (80.0-100.0); Monocytes # (auto) 0.7 10 ^3/uL (0-1.3); Neutrophils % (auto) 59.9 % (37.0-80.0); Platelet Count (auto) 254 10^3/uL (140-450); Red Blood Cells 4.37 10^6/uL (4.5-5.90); Red Cell Distribution Width 19.2 % (11.8-14.3); White Blood Cell 6.7 10^3/uL (4.4-10.8)
[2024-09-13 07:58] LABS: Chloride 104 mmol/L (98-107); Potassium 4.2 mmol/L (3.5-5.1); Sodium 141 mmol/L (136-145)
[2024-09-13 07:59] LABS: Anion Gap 7 (5-15); Calcium 9.2 mg/dL (8.7-10.4); Carbon Dioxide 30 mmol/L (20-31)
[2024-09-13 08:04] LABS: BUN/Creatinine Ratio 18.3 (10.0-20.0); Blood Urea Nitrogen 19 mg/dL (9-23)
[2024-09-13 08:05] LABS: Glucose 118 mg/dL (74-106)
[2024-09-13] MEDS: cefTRIAXone 1GM/50ML D5W 50 ML IV SCH (08:23)
[2024-09-13] MEDS: AZITHROMYCIN 500MG/ 250ML 250 ML IV SCH (10:09)
--- NOTE | 2024-09-13 15:03 | DVHPNRES ---
Progress Note Date Seen: Sep 13, 2024 Resident Creating Document: GUANAKITO CORREA RESIDENT Medical Necessity Reason Pt with a Central, PICC or Fol: No Subjective Review of Systems Patient seen and examined at bedside. Patient is feeling better today. Bilateral decreased air entry. Objective vital signs Vital Sign Date Time Temp Pulse Resp B/P (MAP) Pulse Ox O2 Delivery O2 Flow Rate FiO2 09/13/24 12:10 97.8 79 17 142/82 (102) 94 97.8 09/13/24 11:46 Nasal Cannula* 2 28 Total Intake and Output 09/12/24 09/12/24 09/13/24 14:59 22:59 06:59 Intake Total 125 ml 200 ml Balance 125 ml 200 ml medications Current Medications Medications Dose Ordered Sig/Julieth Route Start Time Stop Time Status Last Admin Dose Admin Nitroglycerin 0.4 mg Q5MINP PRN SL 09/11/24 23:45 Morphine Sulfate 2 mg Q30M PRN IV 09/11/24 23:45 Levalbuterol HCl 0.625 mg Q6HR NEB 09/12/24 00:00 09/13/24 11:46 0.625 MG Ipratropium [place] 0.5 mg Q6HR NEB 09/12/24 00:00 09/13/24 11:46 0.5 MG Ceftriaxone Sodium 50 ml @ 100 mls/hr DAILY@09 IV 09/13/24 09:00 09/13/24 08:23 100 MLS/HR Methylprednisolone Sodium Succinate 40 mg DAILY IV 09/12/24 10:00 09/13/24 08:23 40 MG Pantoprazole Sodium 40 mg DAILY@0600 PO 09/12/24 06:00 09/13/24 05:50 40 MG Enoxaparin Sodium 40 mg DAILY SC 09/12/24 10:00 09/12/24 10:30 40 MG Acetaminophen/ Hydrocodone Bitart 1 tab Q8HP PRN PO 09/12/24 09:30 09/13/24 11:49 1 TAB Azithromycin 250 ml @ 125 mls/hr DAILY IV 09/13/24 10:00 09/13/24 10:09 125 MLS/HR Acetylcysteine 100 mg Q6HR NEB 09/12/24 18:00 09/13/24 11:46 100 MG Ergocalciferol 50,000 unit Q7D PO 09/12/24 15:00 09/12/24 15:20 50,000 UNIT Acetaminophen 500 mg Q4HPRN PRN PO 09/12/24 15:00 Examination General: afebrile, mucosae are moist Cardiovascular: Regular S1 and S2. No murmurs, gallops or rubs. No JVD elevation. No pedal edema Respiratory: Decreased air entry auscultation. Wheezing or crackles heard. On 2 L NC Abdomen: Soft, nontender, nondistended, normoactive bowel sounds, no rebound tenderness, no organomegaly, no masses Genitourinary: Deferred MSK/skin: Mobilizes 4 limbs. Skin is dry and warm Neurological: No motor, no sensitive deficits, normal speech. Pupils are isocoric and reactive. Psych/Mental Status: A/Ox3. laboratory and microbiology Laboratory Tests 09/13/24 06:42 Test 09/13/24 06:42 Range/Units Serum Glucose 118 H 74-106 mg/dL Problem List/Assessment/Plan Problem List/Assessment/Plan Acute on chronic hypoxic respiratory failure likely due to COPD exacerbation Acute COPD exacerbation likely due to pneumonitis Sepsis secondary to Pneumonia likely due to Gram +/- bacteria - IV ceftriaxone and p.o. doxycycline starting 09/11, p.o. doxycycline changed to IV azithromycin 09/12. - duo nebs q.6 hours - Solu-Medrol 40 mg daily - COVID and influenza negative - sputum culture pending -Mucomyst H/O leukemia - patient asked to bring his medication ibrutinib as it is non formulary Vitamin-D deficiency Supplemented Cannabis use dependence Counseled regarding cessation for more than 20 minutes PUD prophylaxis: Protonix DVT prophylaxis: Enoxaparin Plan discussed with patient in which all questions have been answered Goals of care discussed with patient for 16 minutes, full code status Case discussed with Dr. Johnson Plan discussed with: Patient Date of Service: Sep 13, 2024 Billing Provider: AGATA JOHNSON MD Common Visit Codes: [id number] INP/OBS CARE(HIGH) GUANAKITO CORREA RESIDENT Sep 13, 2024 15:03 AGATA JOHNSON MD Sep 15, 2024 11:50
[2024-09-14] VITALS (14 sets, daily range): BP systolic 129–152; BP diastolic 81–88; PULSE 59–87; RESP 16–18; TEMP 36.6; O2SAT 92–100
[2024-09-14 06:39] LABS: Basophils # (auto) 0 10 ^3/uL (0-0.2); Basophils % (auto) 0.2 % (0.0-2.0); Eosinophils # (auto) 0 10 ^3/uL (0-0.8); Eosinophils % (auto) 0.3 % (0.0-7.0); Hematocrit 40.2 % (41.0-53.0); Hemoglobin 13.3 g/dL (13.5-17.5); Lymphocytes # (auto) 2.3 10 ^3/uL (0.4-5.4); Lymphocytes % (auto) 35.6 % (10.0-50.0); Mean Corpuscular Hemoglobin 30.6 pg (28.0-32.0); Mean Corpuscular Hgb Conc. 33.1 g/dL (32.0-36.0); Mean Corpuscular Volume 92.5 fL (80.0-100.0); Monocytes # (auto) 0.6 10 ^3/uL (0-1.3); Monocytes % (auto) 8.8 % (0.0-12.0); Neutrophils # (auto) 3.6 10 ^3/uL (1.6-8.6); Neutrophils % (auto) 55.1 % (37.0-80.0); Platelet Count (auto) 240 10^3/uL (140-450); Red Blood Cells 4.35 10^6/uL (4.5-5.90); Red Cell Distribution Width 18.7 % (11.8-14.3); White Blood Cell 6.5 10^3/uL (4.4-10.8)
[2024-09-14 06:46] LABS: Calcium 9.5 mg/dL (8.7-10.4); Chloride 101 mmol/L (98-107); Potassium 3.8 mmol/L (3.5-5.1); Sodium 139 mmol/L (136-145)
[2024-09-14 06:47] LABS: Anion Gap 8 (5-15); Carbon Dioxide 30 mmol/L (20-31)
[2024-09-14 06:52] LABS: BUN/Creatinine Ratio 16.3 (10.0-20.0); Blood Urea Nitrogen 17 mg/dL (9-23); Glucose 128 mg/dL (74-106)
[2024-09-14] MEDS: predniSONE 20 MG TAB PO SCH (13:21)
[2024-09-14] MEDS ORDERED: AZIT500T66 PO (14:21)
[2024-09-14] MEDS ORDERED: PRED20TA2 PO (14:21)
[2024-09-14] MEDS ORDERED: CHOL500021 OR (14:23)
--- NOTE | 2024-09-14 16:42 | DVHDSRES ---
Discharge Summary Date of Admission Resident Creating Document: MARVIN ALBA RESIDENT Sep 11, 2024 at 23:33 Date of Discharge: Sep 14, 2024 Labs/Diagnostic Data: Laboratory Results Test 09/14/24 06:06 09/12/24 09:40 09/12/24 07:04 09/12/24 04:53 White Blood Count 6.5 10^3/uL (4.4-10.8) Red Blood Count 4.35 10^6/uL (4.5-5.90) Hemoglobin 13.3 g/dL (13.5-17.5) Hematocrit 40.2 % (41.0-53.0) Mean Corpuscular Volume 92.5 fL (80.0-100.0) Mean Corpuscular Hemoglobin 30.6 pg (28.0-32.0) Mean Corpuscular Hemoglobin Concent 33.1 g/dL (32.0-36.0) Red Cell Distribution Width 18.7 % (11.8-14.3) Platelet Count 240 10^3/uL (140-450) Mean Platelet Volume 7.5 fL (6.9-10.8) Neutrophils (%) (Auto) 55.1 % (37.0-80.0) Lymphocytes (%) (Auto) 35.6 % (10.0-50.0) Monocytes (%) (Auto) 8.8 % (0.0-12.0) Eosinophils (%) (Auto) 0.3 % (0.0-7.0) Basophils (%) (Auto) 0.2 % (0.0-2.0) Neutrophils # (Auto) 3.6 10 ^3/uL (1.6-8.6) Lymphocytes # (Auto) 2.3 10 ^3/uL (0.4-5.4) Monocytes # (Auto) 0.6 10 ^3/uL (0-1.3) Eosinophils # (Auto) 0 10 ^3/uL (0-0.8) Basophils # (Auto) 0 10 ^3/uL (0-0.2) Nucleated Red Blood Cells 0.0 % Sodium Level 139 mmol/L (136-145) Potassium Level 3.8 mmol/L (3.5-5.1) Chloride Level 101 mmol/L (98-107) Carbon Dioxide Level 30 mmol/L (20-31) Anion Gap 8 (5-15) Blood Urea Nitrogen 17 mg/dL (9-23) Creatinine 1.04 mg/dL (0.700-1.30) Glomerular Filtration Rate Calc 81 mL/min (>90) BUN/Creatinine Ratio 16.3 (10.0-20.0) Serum Glucose 128 mg/dL (74-106) Calcium Level 9.5 mg/dL (8.7-10.4) Prothrombin Time 10.6 sec (9.3-11.8) Prothrombin Time INR 1.00 (0.9-1.15) Activated Partial Thromboplast Time 28.8 SEC (24.5-34.5) Magnesium Level 2.0 mg/dL (1.6-2.6) Vitamin B12 Level 726 pg/mL (211-911) Vitamin D 25-Hydroxy 19.2 ng/mL (30.0-100) Thyroid Stimulating Hormone (TSH) 0.44 uIU/mL (0.55-4.78) Urine Color Yellow (Yellow) Urine Clarity Clear (Clear) Urine pH 5.5 (5.0-9.0) Urine Specific [place] 1.017 (1.001-1.035) Urine Protein Trace (Negative) Urine Ketones 1+ (Negative) Urine Blood Negative /uL (Negative) Urine Nitrite Negative (Negative) Urine Bilirubin Negative (Negative) Urine Urobilinogen Normal mg/dL (Negative) Urine Leukocyte Esterase Negative /uL (Negative) Urine RBC 2 /hpf (0 - 3) Urine Microscopic WBC 1 /HPF (0-3) Urine Squamous Epithelial Cells Few /hpf (<5) Urine Bacteria Few /hpf (None Seen) Urine Sperm Present /hpf (None Seen) Urine Glucose Normal mg/dL (Normal) Urine Opiates Screen Neg (NEGATIVE) Urine Fentanyl Screen Neg (NEGATIVE) Urine Barbiturates Screen Neg (NEGATIVE) Urine Phencyclidine Screen Neg (NEGATIVE) Urine Amphetamines Screen Neg (NEGATIVE) Urine Benzodiazepines Screen Neg (NEGATIVE) Urine Cocaine Screen Neg (NEGATIVE) Urine Cannabinoids Screen Pos (NEGATIVE) Influenza Type A Antigen Negative (Negative) Influenza Type B Antigen Negative (Negative) SARS-CoV-2 Antigen (Rapid) Negative (NEGATIVE) Test 09/11/24 19:40 09/11/24 18:55 Troponin I High Sensitivity 7 ng/L (</=54) Lactic Acid Level 1.8 mmol/L (0.4-2.0) Total Bilirubin 0.5 mg/dL (0.2-1.0) Aspartate Amino Transferase (AST) 17 U/L (<34) Alanine Aminotransferase (ALT) < 9 U/L (7-40) Alkaline Phosphatase 108 U/L (46-116) B-Type Natriuretic Peptide 23.67 pg/mL (0-100) Total Protein 6.3 g/dL (5.7-8.2) Albumin 4.4 g/dL (3.2-4.8) Other Laboratory Tests 09/14/24 06:06 Brief Hx & Hospital Course: Patient is a 63-year-old male with a past medical history of COPD on home oxygen 2 L/min, hypertension, leukemia on ibrutinib presented to the ED with a chief complaint of worsening shortness of breath for a week. Patient reports worsening shortness of breaths, he did not know how to titrate his oxygen up, associated with cough which is productive with yellow to white phlegm. He was using his inhalers more during the past week. Past medical history: COPD on 2 L home oxygen, hypertension, leukemia Surgical history: Denies Social history: Patient has a heavy ex-smoker with a 20 pack year smoking history but currently smokes 1-2 cigarettes per day, drinks about 6 pack beer every day, denies any other drug use Home medications: Imbruvica ( ibrutinib ) 420 mg daily for leukemia, Spiriva inhaler, rescue inhalers albuterol and nebulizer, [place] 12/26/2024 3 times daily for chronic back pain During the hospitalization, patient was diagnosed with COPD exacerbation and started on IV ceftriaxone and doxycycline to cover empirically for pneumonia, later doxycycline was switched to IV azithromycin. along with Solu-Medrol 40 mg daily, nebulized treatments were scheduled. Patient's oxygen requirement went down to 2 L which was his home oxygen. Solu-Medrol was changed to prednisone 40mg daily. Patient was asked to bring his home medication for leukemia meds. Vitamin-D was supplemented and patient was counseled cannabis cessation. 09/14-patient is hemodynamically stable, clinically stable therefore is being discharged home with following recommendations: Tablet azithromycin twice daily for next 5 days Tablet prednisone 40 mg daily for next 5 days Follow up with PCP Follow up with push button switch assembler Follow up with [place] [facility] Patient agreed to discharge plan. All questions and concerns answered. Operations or Procedures ORDERING PHYSICIAN: GRZEGORZ WELLER DO PROCEDURE(s): CXRP - CHEST PORTABLE REASON: sob ORDER NUMBER(s): [id number], ACCESSION NUMBER(s): [id number] EXAMINATION: AP portable chest radiograph CLINICAL HISTORY: sob COMPARISON: XY CHEST XRAY 1 VIEW on DOS: 03/25/24, XY CHEST PORTABLE on DOS: 03/21/24 FINDINGS/IMPRESSION: There is mild prominence of the interstitial markings. There is mild nonspecific fullness of the latanya,. The cardiomediastinal silhouette appears unchanged. No pleural effusion or pneumothorax. Unchanged osseous structures. ATED BY: MATI WEATHERS MD DICTATED DATE/TIME: 09/11/241918 SIGNED BY: MATI WEATHERS MD SIGNED DATE/TIME: 09/11/241918 CC: Condition at Discharge: Stable Final Diagnosis/Problems List Acute on chronic hypoxic respiratory failure likely due to COPD exacerbation Acute COPD exacerbation likely due to pneumonitis Sepsis secondary to Pneumonia likely due to Gram +/- bacteria History of leukemia Vitamin-D deficiency Cannabis use dependence Discharge Disposition: Home Discharge Instruct/Medications Diet: Regular Activity: No Restrictions, As Tolerated Follow Up/Referral: Follow up with primary care physician within 7 days Follow up push button switch assembler as outpatient within 7 days Follow up with oncologist as outpatient in 7 days Follow up with the [facility] Medications: Azithromycin 500 mg daily for 5 days Prednisone 40 mg daily for 5 days Resume home medication Discharge Statement: "Patient was advised to return to the ER or call 911 if any headaches, dizziness, shortness of breath, chest pain, abdominal pain, bleeding, fevers, or worsening of medical condition. Patient was counseled about treatment plan, medications, possible side effects, patientverbalized understanding. All questions were answered to the best of my ability. This discharge took greater then 30 minutes in planning, reviewing documentation, counseling the patient, and discussing with other team members." ASSESSMENT ASSESSMENT Assessment Acute COPD exacerbation Date of Service: Sep 14, 2024 Billing Provider: AGATA KUO MD Common Visit Codes: 21637-FSK/OBS DISCH DAY >30min MARVIN ALBA RESIDENT Sep 14, 2024 16:42 AGATA KUO MD Sep 15, 2024 11:50
[2024-09-14] MEDS ORDERED: NIC21P TOP (17:10)
[2024-09-15 10:18] LABS: T3 Total 0.66 ng/mL (0.60-1.81)
[2024-09-15 10:20] LABS: Free T4 (Free Thyroxine) 1.24 ng/dL (0.89-1.76)
--- NOTE | 2024-09-16 14:36 | ECG ---
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
--- NOTE | 2024-09-16 14:36 | ECG ---
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
== END 2024-09-14 17:00 | disposition home or self-care (01) | DRG 871 ==
LOC: ER 18:27 → OVERFLOW 23:33 → TELE-WESTW 09-12 23:30
PROVIDERS: ADMIT Student in an Organized Health Care Education/Training Program; ATTEND Student in an Organized Health Care Education/Training Program
DX: A41.50 Gram-negative sepsis, unspecified (principal); J15.69 Pneumonia due to other Gram-negative bacteria; J96.21 Acute and chronic respiratory failure with hypoxia; J15.9 Unspecified bacterial pneumonia; J44.1 Chronic obstructive pulmonary disease with (acute) exacerbation; E78.5 Hyperlipidemia, unspecified; I10 Essential (primary) hypertension; F12.20 Cannabis dependence, uncomplicated; F17.210 Nicotine dependence, cigarettes, uncomplicated; Z20.822 Contact with and (suspected) exposure to COVID-19; E55.9 Vitamin D deficiency, unspecified; G89.29 Other chronic pain; M54.9 Dorsalgia, unspecified; Z85.6 Personal history of leukemia; Z99.81 Dependence on supplemental oxygen; Z79.899 Other long term (current) drug therapy; Z88.6 Allergy status to analgesic agent
CPT/HCPCS: 36415; 71045; 80048; 80053; 80307; 81001; 82306; 82607; 83605; 83735; 83880; 84439; 84443; 84480; 84484; 85025; 85610; 85730; 87070; 87205; 87426; 87804; 93005; 93306; 94640; 96374; G0378